=== PATIENT | male | born 1945 | race Caucasian/White ===

== ENCOUNTER 2017-04-10 23:20 | Inpatient (IN) ==
[2017-04-10] MEDS ORDERED: Aspirin 81 MG TAB.CHEW PO ONE (23:36)
--- NOTE | 2017-04-10 23:40 | Emergency Department Note ---
Disposition Clinical Impression: NSTEMI (non-ST elevated myocardial infarction) CHF (congestive heart failure) Qualifiers: Congestive heart failure type: unspecified congestive heart failure type Congestive heart failure chronicity: unspecified congestive heart failure chronicity Qualified Code(s): I50.9 - Heart failure, unspecified Disposition: Admitted As Inpatient Condition: Fair Time of Disposition: 01:05 Chest Pain HPI - General Stated Complaint: chest pain nausea Time Seen by Provider: 04/10/17 23:29 Vital Signs Reviewed: Yes Nursing Notes Reviewed: Yes - Related Data Allergies Allergy/AdvReac Type Severity Reaction Status Date / Time No Known Allergies Allergy Unverified 03/20/16 09:26 Chest Pain - [facility] Narrative Medical decision making narrative: 71-year-old male past medical history of CABG resistant emergency department with concern for worsening chest pain over the last week. Today he has largest episode of chest pain. The patient got to the emergency department, electrocardiogram revealed new ST segment depressions of 1 mm in the septal leads. This is also evident in leads 1 as well. Patient was not having any chest pain here in emergency prior. We gave him aspirin. Patient had elevated troponin here of 0.85. Patient is hypertensive with a systolic blood pressure in the 200s.. We will start nitroglycerin drip. Chest x-ray reveals pulmonary edema. We will give the patient 20 mg IV Lasix here in the emergency department. I have consulted cardiology, Dr. Head regarding further recommendations for this patient. She agreed with starting nitroglycerin drip as well as heparin via low-dose ACS protocol. Patient is currently not having any chest pain at this time. I discussed the patient with the plan with the family at bedside and they agree for him to be admitted for further workup and evaluation and monitoring. I also discussed this with the hospitalist and she agreed as well. Patient was hemodynamically stable and not in acute distress at discharge. Chest X-Ray 04/10/17 23:30 IMPRESSION: Pulmonary edema. D/ / Derki Chauhan MD / Derik Chauhan MD Interpreting Provider: Derik Chauhan MD - Lab Data Result diagrams: 04/10/17 00:00 04/10/17 00:00 Lab Results 04/10/17 04/10/17 04/10/17 Range/Units 00:00 00:00 00:00 WBC 10.8 (4.3-11.1) K/mcL RBC 5.06 (4.19-5.50) M/mcL Hgb 14.3 (12.9-16.9) g/dL Hct 44.7 (37.5-50.1) % MCV 88.3 (83.0-100.0) fL MCH 28.3 (28.0-33.3) pg MCHC 32.0 (31.6-35.5) g/dL RDW 14.6 H (11.5-14.5) % Plt Count 275 (140-400) K/mcL MPV 11.7 (9.4-12.4) fL Immature Gran % 0.7 (0-4) % Seg Neutrophils % 55.1 % Lymphocytes % 34.6 % Monocytes % 6.8 % Eosinophils % 2.2 % Basophils % 0.6 % Neutrophils # 6.0 (1.6-8.9) K/mcL Lymphocytes # 3.7 (0.6-4.6) K/mcL Monocytes # 0.7 (0.0-1.3) K/mcL Eosinophils # 0.2 (0.0-0.6) K/mcL Basophils # 0.1 (0.0-0.2) K/mcL Sodium 142 (136-145) mEq/L Potassium 3.9 (3.5-4.5) mEq/L Chloride 101 (98-109) mEq/L Carbon Dioxide 28 (19-29) mEq/L BUN 20 (8-26) mg/dL Creatinine 1.41 H (0.72-1.25) mg/dL Est GFR ( Amer) > 60 (> 60) Est GFR (Non-Af Amer) 50 L (> 60) BUN/Creatinine Ratio 14 (6-26) Glucose 184 H (70-99) mg/dL Calculated Osmolality 301 H (280-300) Calcium 10.1 (8.6-10.8) mg/dL Troponin I (0-0.03) ng/mL B-Natriuretic Peptide 597 H (0-100) pg/mL 04/10/17 Range/Units 00:00 WBC (4.3-11.1) K/mcL RBC (4.19-5.50) M/mcL Hgb (12.9-16.9) g/dL Hct (37.5-50.1) % MCV (83.0-100.0) fL MCH (28.0-33.3) pg MCHC (31.6-35.5) g/dL RDW (11.5-14.5) % Plt Count (140-400) K/mcL MPV (9.4-12.4) fL Immature Gran % (0-4) % Seg Neutrophils % % Lymphocytes % % Monocytes % % Eosinophils % % Basophils % % Neutrophils # (1.6-8.9) K/mcL Lymphocytes # (0.6-4.6) K/mcL Monocytes # (0.0-1.3) K/mcL Eosinophils # (0.0-0.6) K/mcL Basophils # (0.0-0.2) K/mcL Sodium (136-145) mEq/L Potassium (3.5-4.5) mEq/L Chloride (98-109) mEq/L Carbon Dioxide (19-29) mEq/L BUN (8-26) mg/dL Creatinine (0.72-1.25) mg/dL Est GFR ( Amer) (> 60) Est GFR (Non-Af Amer) (> 60) BUN/Creatinine Ratio (6-26) Glucose (70-99) mg/dL Calculated Osmolality (280-300) Calcium (8.6-10.8) mg/dL Troponin I 0.85 H* (0-0.03) ng/mL B-Natriuretic Peptide (0-100) pg/mL - Radiology Data Radiology results reviewed: Yes I reviewed the patient's radiology results. - EKG Data EKG attestation: Yes I reviewed and interpreted this EKG. EKG results narrative: EKG 1 23:26 Ventricular rate 86 bpm, when necessary interval 160 ms, QRS congregational 109 ms , QT 408 ms, QTC 451, normal axis. Sinus rhythm with a ventricular rate of 86 bpm. There are [address] segment depression in the septal leads of V3, V4. There is also [address] depression in leads 1. This is a comparison with a previous electrocardiogram performed on June 22, 2013. Attestation Statement - Attestation Attestation: I examined this patient and my medical decision-making was reviewed with the Resident Physician. I agree with the documented findings, disposition and treatment plan as described except to the extent set forth below. Patient presents to the ED with chest pain. Patient without some intermittent episodes for several days. He describes it as indigestion. He states he has been taking some medication for this with no relief of it. Patient does have cardiac history of a four-way bypass. On examination he is in no acute distress. He is having no symptoms on my evaluation. His lungs are clear. Plan. The patient has an elevated BNP, positive troponin, and pulmonary edema and his chest x-ray. He is given some Lasix. He is given aspirin and heparin for the elevated troponin. He is admitted to medicine with a cardiology consult. The patient does have new increased ST depressions anterolaterally. We did do a posterior EKG that did not show any ST elevations. 40 minutes of critical care exclusive of separately billable procedures.
[2017-04-11 00:08] LABS: Hematocrit 44.7 % (37.5-50.1); Hemoglobin 14.3 g/dL (12.9-16.9); Immature Granulocytes % 0.7 % (0-4); Lymphocytes % 34.6 %; Mean Corpuscular Hemoglobin 28.3 pg (28.0-33.3); Mean Corpuscular Volume 88.3 fL (83.0-100.0); Mean Platelet Volume 11.7 fL (9.4-12.4); Platelet Count 275 K/mcL (140-400); Red Blood Count 5.06 M/mcL (4.19-5.50); Red Cell Distribution Width 14.6 % (11.5-14.5); Segmented Neutrophils % 55.1 %
[2017-04-11 00:09] LABS: Basophils # 0.1 K/mcL (0.0-0.2); Basophils % 0.6 %; Eosinophils # 0.2 K/mcL (0.0-0.6); Eosinophils % 2.2 %; Lymphocytes # 3.7 K/mcL (0.6-4.6); Monocytes # 0.7 K/mcL (0.0-1.3); Monocytes % 6.8 %
[2017-04-11 00:21] LABS: BUN/Creatinine Ratio 14 (6-26); Blood Urea Nitrogen 20 mg/dL (8-26); Calcium 10.1 mg/dL (8.6-10.8); Carbon Dioxide 28 mEq/L (19-29); Chloride 101 mEq/L (98-109); Glucose 184 mg/dL (70-99); Osmolality,Calculated 301 (280-300); Potassium 3.9 mEq/L (3.5-4.5); Sodium 142 mEq/L (136-145); eGFR For African Americans > 60 (> 60); eGFR For Non-African Americans 50 (> 60)
[2017-04-11] MEDS ORDERED: *HR* Heparin 5,000 UNIT/ML VIAL IVP ONE (00:47)
[2017-04-11] MEDS ORDERED: *HR* Heparin 5,000 UNIT/ML VIAL IVP PRN ×2 (00:47)
[2017-04-11] MEDS ORDERED: Heparin 25,000 UNIT/500 ML D5W 25,000 UNIT/500 ML MLS IVC SCH (01:00)
[2017-04-11] MEDS ORDERED: Nitroglycerin 25 MG/250 ML INFUS..BTL IVC SCH (01:00)
[2017-04-11 01:04] LABS: Prothrombin Time 11.2 Seconds (9.4-12.1)
[2017-04-11] MEDS ORDERED: 0.9 % Sodium Chloride 500 ML ONE (01:06)
[2017-04-11] MEDS ORDERED: Furosemide 20 MG/2 ML VIAL IVP ONE (01:14)
[2017-04-11] MEDS ORDERED: Furosemide 40 MG/4 ML VIAL IVP ONE (01:17)
[2017-04-11] MEDS ORDERED: Naloxone 0.4 MG/ML INJ IVP PRN (01:55)
[2017-04-11] MEDS ORDERED: Ondansetron 4 MG/2 ML VIAL IVP PRN (01:55)
[2017-04-11] MEDS ORDERED: Acetaminophen 325 MG TABLET PO PRN (01:55)
[2017-04-11] MEDS ORDERED: Dextrose Gel 15 GM PO PRN ×2 (01:58)
[2017-04-11] MEDS ORDERED: *HR* Dextrose 50 % in Water (Syg) 50 ML SYRINGE IVP PRN (01:58)
[2017-04-11] MEDS ORDERED: D5% in Water 1,000 ML IVC PRN (01:58)
[2017-04-11] MEDS ORDERED: Ipratropium/Albuterol Neb 3 ML IH PRN (02:04)
--- NOTE | 2017-04-11 02:11 | Internal Med History&Physical ---
Date of Encounter: 04/11/17 Time of Encounter: 01:00 Assessment and Plan (1) COPD (chronic obstructive pulmonary disease) Current visit: Yes Status: Acute Patient has a history of COPD. Stable. No signs of exacerbation. Will continue home medications and DuoNeb nebulizer when necessary. Qualifiers: COPD type: emphysema Emphysema type: other Qualified Code(s): J43.8 - Other emphysema (2) Diabetes Current visit: Yes Status: Acute Please to patient on basal and sliding scale insulin coverage Qualifiers: Diabetes mellitus type: type 2 Diabetes mellitus complication status: with kidney complications Diabetes mellitus complication detail: with chronic kidney disease Diabetes mellitus silvering applicator insulin use: with silvering applicator use Chronic kidney disease stage: stage 3 (moderate) Qualified Code(s): E11.22 - Type 2 diabetes mellitus with diabetic chronic kidney disease; N18.3 - Chronic kidney disease, stage 3 (moderate); N18.3 - Chronic kidney disease, stage 3 ( moderate); 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 Patient has high blood pressure at this point, NTG drip was started in the emergency room. Will continue NTG drip and closely monitor BP. Qualifiers: Hypertension type: essential hypertension Qualified Code(s): I10 - Essential (primary) hypertension (4) MICA (obstructive sleep apnea) Current visit: Yes Status: Acute Continue CPAP during night (5) CAD (coronary artery disease) Current visit: Yes Status: Acute Patient has history of CAD S/P CABG and stent. Now patient has chest pain with elevated troponin. Consider NSTEMI. - Heparin drip was started. - Continue home med beta grace, ACEI, and statin. - Continuous cardiac monitoring. Cardiology consult. Qualifiers: Coronary Disease-Associated Artery/Lesion type: bypass graft [place] vs. transplanted heart: [place] heart Associated angina: with unstable angina Qualified Code(s): I25.700 - Atherosclerosis of coronary artery bypass graft(s) , unspecified, with unstable angina pectoris (6) DVT prophylaxis Current visit: Yes Status: Acute Patient is on heparin drip (7) NSTEMI (non-ST elevated myocardial infarction) Current visit: Yes Status: Acute Patient has chest pain with elevated troponin, consider NSTEMI - Heparin drip was started. - Continue home med beta grace, ACEI, and statin. - Continuous cardiac monitoring. Cardiology consult. (8) CHF (congestive heart failure) Current visit: Yes Status: Acute Patient has exertional shortness of breath. Elevated BNP and chest x-ray shows pulmonary edema. - Consider CHF with mild exacerbation. - NTG drip started. - Lasix IV - Strict I and O - Echocardiogram in a.m. Qualifiers: Congestive heart failure type: unspecified congestive heart failure type Congestive heart failure chronicity: unspecified congestive heart failure chronicity Qualified Code(s): I50.9 - Heart failure, unspecified Internal Medicine - H&P: HPI Chief complaint: Chest pain Admitted From: Home Plans for Post Hospital Care: Home History of present illness: Mr. Vann is a 71 year old male with history of COPD, CAD S/P CABG and stent , diabetes, hypertension, presented to emergency room for chest pain and shortness of breath. Patient said he has chest pain on and off for several weeks, he sought it is from reflex and didn't seek treatment as it gone by it self. Today, patient started having chest pain since 9 PM, radiated to bilateral arm, with shortness of breath, with nausea but no vomiting, patient also has diaphoresis. The pain lasted more than 1 hour and not resolve but itself. Patient come to ER, EKG shows no ST elevation, troponin positive. Patient was admitted as NSTEMI. Patient also complains exertional shortness of breath for about 2 weeks. X-ray shows pulmonary edema. Patient was also treated with Lasix IV. After treatment, his chest pain resolved, when I saw him in emergency room, he is pain-free. Internal Medicine - H&P: Meds Atorvastatin [Lipitor] 40 mg PO HS 04/11/17 [History] Budesonide/Formoterol 160/4.5 [Symbicort 160/4.5] 2 puff IH BIDR 04/11/17 [ History] Fluticasone Propionate Nasal [Flonase] 50 mcg NS DAILY 04/11/17 [History] Furosemide [Lasix] 20 mg PO DAILY 04/11/17 [History] Insulin Glargine,Hum.rec.anlog [Lantus Solostar] 22 - 24 unit SQ HS 04/11/17 [ History] Lisinopril [Zestril] 20 mg PO DAILY 04/11/17 [History] Metoprolol [Lopressor] 50 mg PO BID 04/11/17 [History] Montelukast [Singulair] 10 mg PO DAILY 04/11/17 [History] Ranolazine [Ranexa] 1,000 mg PO BID 04/11/17 [History] Sitagliptin Phos/Metformin HCl [Janumet Xr 50-1,000 mg Tablet] 1 each PO BID [History] 3 Allergy/AdvReac Type Severity Reaction Status Date / Time No Known Allergies Allergy Unverified 03/20/16 09:26 All Systems PM: A 10-system review of systems was performed and is negative for pertinent findings except as documented above in the HPI. - Constitutional Vitals: Pulse Resp BP Pulse Ox 73 18 197/107 94 04/11/17 02:03 04/11/17 02:03 04/11/17 02:03 04/11/17 02:03 General appearance: Present: mild distress, A&O X 3, answers questions appropriately - Head Head exam: Present: atraumatic, normocephalic - Eye Eye exam: Present: PERRL, conjuntiva pink, sclera anicteric Pupils: Present: PERRL - Neck Neck exam general surgery: Present: supple, trachea midline. Absent: lymphadenopathy - Respiratory Respiratory exam: Present: CTAB, wheezes (trace wheeze on left lower base). Absent: accessory muscle use, rales, rhonchi - Cardiovascular Cardiovascular exam: Present: RRR, +S1, +S2. Absent: diastolic murmur, gallop, rubs, systolic murmur - GI/Abdominal GI/Abdominal exam: Present: distended, normal bowel sounds, soft, no peritoneal signs. Absent: tenderness - Extremities Exam Extremities exam: Present: pedal edema (Mild pedal edema bilaterally), warm, radial pulses palpable and symmetrical. Absent: calf tenderness, cyanotic - Neurological Exam Neurological exam: Present: CN II-XII intact, oriented X3, no focal deficits. Absent: pronater drift, facial droop, speech deficit - Skin Skin exam: Present: dry, intact Internal Med - H&P Results - Labs CBC & Chem 7: 11/18/17 00:00 04/10/17 00:00 - EKG Data -: EKG Interpreted by Myself EKG shows normal: sinus rhythm Rate: normal
[2017-04-11] MEDS ORDERED: *HR* Metoprolol 5 MG/5 ML VIAL IVP ONE (02:19)
[2017-04-11] MEDS: Insulin LISPRO 300 UNITS/3 ML VIAL SQ SCH ×4 (06:28→22:17)
[2017-04-11 07:11] LABS: BUN/Creatinine Ratio 17 (6-26); Blood Urea Nitrogen 20 mg/dL (8-26); Calcium 9.2 mg/dL (8.6-10.8); Carbon Dioxide 28 mEq/L (19-29); Chloride 104 mEq/L (98-109); Glucose 150 mg/dL (70-99); Magnesium 1.5 mg/dL (1.6-2.6); Osmolality,Calculated 301 (280-300); Potassium 3.9 mEq/L (3.5-4.5); Sodium 143 mEq/L (136-145); eGFR For African Americans > 60 (> 60); eGFR For Non-African Americans > 60 (> 60)
[2017-04-11 07:31] LABS: Basophils % 0.7 %; Eosinophils % 1.8 %; Hematocrit 41.4 % (37.5-50.1); Hemoglobin 13.1 g/dL (12.9-16.9); Immature Granulocytes % 0.8 % (0-4); Lymphocytes % 29.5 %; Mean Corpuscular HGB Conc 31.6 g/dL (31.6-35.5); Mean Corpuscular Hemoglobin 28.1 pg (28.0-33.3); Mean Corpuscular Volume 88.8 fL (83.0-100.0); Mean Platelet Volume 11.8 fL (9.4-12.4); Monocytes % 7.1 %; Platelet Count 218 K/mcL (140-400); Red Blood Count 4.66 M/mcL (4.19-5.50); Red Cell Distribution Width 14.7 % (11.5-14.5); Segmented Neutrophils % 60.1 %
[2017-04-11 07:32] LABS: Basophils # 0.1 K/mcL (0.0-0.2); Eosinophils # 0.2 K/mcL (0.0-0.6); Lymphocytes # 2.7 K/mcL (0.6-4.6); Monocytes # 0.6 K/mcL (0.0-1.3); Neutrophils # 5.5 K/mcL (1.6-8.9)
[2017-04-11] MEDS ORDERED: Magnesium Sulfate 1 GM in D5% in Water 100 ML IVPB ONE (08:09)
[2017-04-11] MEDS: Aspirin Enteric Coated 81 MG Tablet PO SCH (08:26)
[2017-04-11] MEDS: Fluticasone Propionate Nasal 50 MCG/SPRAY BOTTLE NS SCH (08:26)
[2017-04-11] MEDS: Ranolazine 500 MG TAB.ER.12H PO SCH ×2 (08:31→22:16)
[2017-04-11] MEDS: Lisinopril 20 MG TABLET PO SCH (08:31)
[2017-04-11] MEDS: Furosemide 40 MG/4 ML VIAL IVP SCH ×2 (08:59→16:18)
[2017-04-11] MEDS ORDERED: Verapamil 5 MG/2 ML VIAL ONE (09:39)
[2017-04-11] MEDS ORDERED: 0.9 % Sodium Chloride 1,000 ML ONE ×2 (09:40→10:07)
[2017-04-11] MEDS ORDERED: *HR* Heparin 10,000 UNIT/10 ML VIAL ONE (09:40)
[2017-04-11] MEDS ORDERED: Nitroglycerin 1,000 MCG/10 ML VIAL IV ONE (09:40)
[2017-04-11] MEDS ORDERED: Heparin 1,000 UNITS/500 mL NS 500 ML ONE (09:40)
--- NOTE | 2017-04-11 09:59 | Event Note ---
Date of Encounter: 04/11/17 Time of Encounter: 08:50 Patient is a 71y/o male with history of COPD, CAD S/P CABG and stent, diabetes, hypertension who is admitted for NSTEMI and hypertensive emergency. Pt seen and examined at bedside. Denies any chest pain but remains hypertensive. Evaluated by cardiology and scheduled for [facility] today continue home medications currently on nitro gtt and heparin gtt
[2017-04-11] MEDS ORDERED: *HR* FentaNYL (PF) 100 MCG/2 ML VIAL ONE (10:07)
[2017-04-11] MEDS ORDERED: *HR* Midazolam HCl 2 MG/2 ML VIAL ONE (10:07)
--- NOTE | 2017-04-11 10:08 | Pre-Sedation Evaluation ---
Pre-sedation evaluation - Pre-sedation checklist Date of procedure: 04/11/17 Procedure: [facility] Recent Vitals: Last Vital Signs Temp 97.7 F 04/11/17 08:00 Pulse 76 04/11/17 08:00 Resp 20 04/11/17 08:00 BP 177/104 04/11/17 08:00 Pulse Ox 95 04/11/17 08:00 H&P (including ROS) documented in medical record: Yes Previous reaction to sedatives/anesthetics: Unknown Dietary Status: NPO after Midnight Airway Assessment: Patient can open mouth completely, TMJ function normal ASA Classification *see protocol: CLASS II-Mild systemic disease Plan of Care: Pt appropriate candidate for procedure/moderate/conscious sedation , Risks/benefits of procedure/sedation discussed w/ patient/family
[2017-04-11] MEDS ORDERED: Tirofiban 12.5 MG/250ML 12.5 MG/250 ML BAG ONE (10:45)
[2017-04-11] MEDS: Budesonide/Formoterol 160/4.5 MDI IH SCH ×3 (10:49→22:08)
--- NOTE | 2017-04-11 10:50 | Cardiology Consult Note ---
Date of Encounter: 04/11/17 Time of Encounter: 10:46 Assessment and Plan (1) NSTEMI (non-ST elevated myocardial infarction) Current Visit: Yes Status: Acute Troponins 0.85, 1.67. Complaints of chest pain and dyspnea over recent weeks. On heparin gtt, nitro gtt, ASA, Statin, BB. Prior echo in 2013 EF preserved. Most recent C 2013 with PCI to distal RCA. Hx of CABG. Recommend [facility]. R/B/A discussed. Pt agrees to proceed. [facility] today. Echo to evaluate EF. Continue to follow. (2) CHF (congestive heart failure) Current Visit: Yes Status: Acute BNP 597, CXR with vascular congestion. Agree with IV diuresis. Strict I/O, Na and fluid restriction, daily weights. Previous EF on echo 05/2013 was 55%, but on C at that time EF was 35%. Echo to determine type of EF. Qualifiers: Congestive heart failure type: unspecified congestive heart failure type Congestive heart failure chronicity: unspecified congestive heart failure chronicity Qualified Code(s): I50.9 - Heart failure, unspecified (3) CAD (coronary artery disease) Current Visit: Yes Status: Acute Hx of CABG and PCI. ASA, Statin, BB, ACEi. Qualifiers: Coronary Disease-Associated Artery/Lesion type: bypass graft [place] vs. transplanted heart: [place] heart Associated angina: with unstable angina Qualified Code(s): I25.700 - Atherosclerosis of coronary artery bypass graft(s) , unspecified, with unstable angina pectoris Discussion w patient/family: The assessment and plan as outlined above was discussed with the patient and/or family members who expressed understanding and agreement. All questions were answered. Thank you for involving us in the care of your patient. Please call with any questions. I will discuss all the above with Dr. Mayer and make changes as necessary. History of Present Illness Consult date: 04/11/17 Requesting physician: Giovanni Painter Consult reason: NSTEMI Chief complaint: Dyspnea, chest pain History of present illness: Mr. Vann is a 71 year old male with history of COPD, CAD S/P CABG and PCI, diabetes, hypertension, presented to emergency room for chest pain and shortness of breath. Patient said he has chest pain and dyspnea intermittently for several weeks. He attributed it to reflex and didn't seek treatment. Yesterday, patient started having chest pain, radiated to bilateral arms, had shortness of breath with nausea but no vomiting, was diaphoretic. The pain lasted more than 1 hour and did not resolve. CXR shows pulmonary edema, BNP 597. Troponins 0.85, 1.67. Cardiology consulted for further recommendations. Prior CV Testing: [facility] 06/21/13: Severe 3 vessel CAD, s/p CABG 2/4 patent bypass grafts, EF 35%. Successful PTCA/SAVAGE to distal RCA. SVG-ramus patent, BABB-mLAD patent, SVG-RCA occluded, SVG-1st marginal occluded. Echo 06/22/13: EF 55%. Past Med Surg Social Fam HX - Past Medical History Medical history: CHF, COPD, coronary artery disease, diabetes, hypertension Psychiatric history: no psych history - Past Surgical History Surgical History: angioplasty/stent, coronary bypass (CABG) - Social History Smoking Status: Former smoker Alcohol use: none Drug use: none Medications and Allergies Atorvastatin [Lipitor] 40 mg PO HS 04/11/17 [History] Budesonide/Formoterol 160/4.5 [Symbicort 160/4.5] 2 puff IH BIDR 04/11/17 [ History] Fluticasone Propionate Nasal [Flonase] 50 mcg NS DAILY 04/11/17 [History] Furosemide [Lasix] 20 mg PO DAILY 04/11/17 [History] Insulin Glargine,Hum.rec.anlog [Lantus Solostar] 22 - 24 unit SQ HS 04/11/17 [ History] Lisinopril [Zestril] 20 mg PO DAILY 04/11/17 [History] Metoprolol [Lopressor] 50 mg PO BID 04/11/17 [History] Montelukast [Singulair] 10 mg PO DAILY 04/11/17 [History] Ranolazine [Ranexa] 1,000 mg PO BID 04/11/17 [History] Sitagliptin Phos/Metformin HCl [Janumet Xr 50-1,000 mg Tablet] 1 each PO BID [History] 3 Allergy/AdvReac Type Severity Reaction Status Date / Time No Known Allergies Allergy Unverified 03/20/16 09:26 All Systems Review: A 10-system review of systems was performed and is negative for pertinent findings except as documented above in the HPI. - Cardiovascular Cardiovascular: as per HPI, chest pain at rest, chest pain with exertion, diaphoresis, dyspnea at rest, dyspnea on exertion, radiating jaw, neck or arm pain - Respiratory Respiratory: dyspnea Physical Examination Vital Signs, Last 4 Hours Temp Pulse Resp BP Pulse Ox 04/11/17 08:00 97.7 F 76 20 177/104 95 Vital Signs Temp Pulse Resp BP Pulse Ox 04/11/17 08:00 97.7 F 76 20 177/104 95 04/11/17 03:23 97.4 F L 75 16 158/90 94 04/11/17 02:29 77 18 160/97 94 04/11/17 02:03 73 18 197/107 94 Intake and Output 04/10/17 04/11/17 04/11/17 23:59 07:59 15:59 Intake Total 60 / 60 138 / 138 Output Total 300 / 300 Balance -240 / -240 138 / 138 Intake: IV Fluids 60 / 60 138 / 138 Heparin 25,000 UNIT/500 ML D5W 138 / 138 25,000 unit In 500 ml @ 8.8 UNIT/KG/HR 20.118 mls/hr IVC . Q24H [facility] Rx#:[id number] Nitroglycerin Premix 25 MG/250 60 / 60 ML 25 mg In 250 ml @ 5 MCG/MIN 3 mls/hr IVC .Q24H [facility] Rx#: [id number] Oral 0 / 0 0 / 0 Output: Urine 300 / 300 Other: Stool Size Moderate Stool Consistency soft Stool Color Brown # Voids 1 1 # Bowel Movements 1 Weight 114.1 kg Blood Glucose* 132 131 Patient Weight 04/11/17 23:59 Weight 114.1 kg General: Conversant, No Apparent Distress HEENT: Atraumatic, Normocephaly, Mucus Membranes Moist Neck: No JVD, Normal carotid pulses Cardiac: Reg Rate and Rhythm, Normal S1 and S2, No Murmur Lungs: Other (diminished) Neuro: Alert and responsive, No focal deficits noted Abdomen: Soft, Non-Tender Skin: No rashes noted on visualized skin Musculoskeletal: No Chest Wall Tenderness Extremities: No Clubbing, No Cyanosis, No Edema, Normal Pulses Results 04/11/17 06:20 04/11/17 06:20 Lab Results 11/04/11/17 04/11/17 06:20 06:20 06:20 WBC 9.1 Hgb 13.1 Hct 41.4 Plt Count 218 INR APTT Sodium 143 Potassium 3.9 Chloride 104 Carbon Dioxide 28 BUN 20 Creatinine 1.17 Glucose 150 H Calcium 9.2 Magnesium 1.5 L Troponin I 1.67 H* 04/11/17 04/11/17 07:44 Unknown WBC Hgb Hct Plt Count INR 1.0 APTT 89.2 H D 40.0 H Sodium Potassium Chloride Carbon Dioxide BUN Creatinine Glucose Calcium Magnesium Troponin I Short CBC 04/11/17 04/10/17 Range/Units 06:20 00:00 WBC 9.1 10.8 (4.3-11.1) K/mcL Hgb 13.1 14.3 (12.9-16.9) g/dL Hct 41.4 44.7 (37.5-50.1) % Plt Count 218 275 (140-400) K/mcL Neutrophils # 5.5 6.0 (1.6-8.9) K/mcL BMP 04/11/17 04/10/17 Range/Units 06:20 00:00 Sodium 143 142 (136-145) mEq/L Potassium 3.9 3.9 (3.5-4.5) mEq/L Chloride 104 101 (98-109) mEq/L Carbon Dioxide 28 28 (19-29) mEq/L BUN 20 20 (8-26) mg/dL Creatinine 1.17 1.41 H (0.72-1.25) mg/dL Glucose 150 H 184 H (70-99) mg/dL Calcium 9.2 10.1 (8.6-10.8) mg/dL Cardiac Enzymes 04/11/17 04/10/17 Range/Units 06:20 00:00 Troponin I 1.67 H* 0.85 H* (0-0.03) ng/mL Impressions Chest X-Ray 04/10/17 23:30 IMPRESSION: Pulmonary edema. D/ / Derik Chauhan MD / Derik Chauhan MD Interpreting Provider: Derik Chauhan MD Active Medications Acetaminophen (Tylenol) 650 mg PO Q6HR PRN PRN Reason: Mild Pain (1-3) Stop: 10/11/17 01:56 Last Admin: 04/11/17 08:31 Dose: 650 mg Albuterol/Ipratropium (Duoneb) 3 ml IH [id number] PRN PRN Reason: Shortness Of Breath/Wheezing Stop: 10/11/17 02:05 Aspirin (Aspirin Ec) 81 mg PO DAILY [facility] Stop: 10/11/17 09:01 Last Admin: 04/11/17 08:26 Dose: Not Given Atorvastatin Calcium (Lipitor) 40 mg PO HS [facility] Stop: 10/11/17 21:01 Budesonide/Formoterol Fumarate (Symbicort) 2 puff IH BIDR [facility] PRN Reason: Protocol Stop: 10/11/17 10:01 Last Admin: 04/11/17 10:49 Dose: Not Given Dextrose/Water (Dextrose 50% (Syg)) 25 ml IVP AD PRN PRN Reason: Hypoglycemia Stop: 10/11/17 01:59 Fluticasone Propionate (Flonase) 50 mcg NS DAILY [facility] PRN Reason: Protocol Stop: 10/11/17 09:01 Last Admin: 04/11/17 08:26 Dose: Not Given Furosemide (Lasix) 40 mg IVP BIDDIURETIC [facility] Stop: 10/11/17 08:01 Last Admin: 04/11/17 08:59 Dose: 40 mg Glucagon (Glucagen) 1 mg IM ONCE PRN PRN Reason: Hypoglycemia Stop: 10/11/17 01:59 Glucose (Gluctose) 15 gm PO ONCE PRN PRN Reason: Hypoglycemia Stop: 10/11/17 01:59 Glucose (Gluctose) 30 gm PO ONCE PRN PRN Reason: Hypoglycemia Stop: 10/11/17 01:59 Heparin Sodium (Porcine) (Heparin) 4,000 unit IVP Q6HR PRN PRN Reason: SEE COMMENTS Stop: 10/11/17 00:48 Heparin Sodium (Porcine) (Heparin) 2,000 unit IVP Q6H PRN PRN Reason: SEE COMMENTS Stop: 10/11/17 00:48 Heparin Sodium/Dextrose (Heparin 25,000 Unit/500 Ml D5w) 25,000 unit in 500 mls @ 20.118 mls/hr IVC .Q24H [facility]; 8.8 UNIT/KG/HR PRN Reason: Protocol Stop: 10/11/17 01:01 Last Titration: 04/11/17 08:43 Dose: 8.8 unit/kg/hr, 20.118 mls/hr Nitroglycerin (Nitroglycerin Premix 25 Mg/250 Ml) 25 mg in 250 mls @ 3 mls/hr IVC .Q24H [facility]Y; 5 MCG/MIN PRN Reason: Protocol Stop: 10/11/17 01:01 Last Titration: 04/11/17 02:04 Dose: 20 mcg/min, 12 mls/hr Dextrose (Dextrose 5%) 1,000 mls @ 100 mls/hr IVC .Q10H PRN PRN Reason: HYPOGLYCEMIA Stop: 10/11/17 01:59 Insulin Detemir (Levemir) 20 unit SQ HS [facility] Stop: 10/11/17 21:01 Insulin Human Lispro (Humalog) 0 units SQ Q6HR [facility] PRN Reason: Protocol Stop: 10/11/17 06:01 Last Admin: 04/11/17 06:28 Dose: Not Given Lisinopril (Zestril) 20 mg PO DAILY [facility] PRN Reason: Protocol Stop: 10/11/17 09:01 Last Admin: 04/11/17 08:31 Dose: 20 mg Metoprolol Tartrate (Lopressor) 50 mg PO BID [facility] Stop: 10/11/17 09:01 Last Admin: 04/11/17 08:31 Dose: 50 mg Montelukast Sodium (Singulair) 10 mg PO DAILY [facility] Stop: 10/11/17 09:01 Last Admin: 04/11/17 08:31 Dose: 10 mg Naloxone HCl (Narcan) 0.4 mg IVP Q2MIN PRN PRN Reason: Opioid Reversal Stop: 10/11/17 01:56 Ondansetron HCl (Zofran) 4 mg IVP Q8HR PRN PRN Reason: Nausea And Vomiting Stop: 10/11/17 01:56 Ranolazine (Ranexa) 1,000 mg PO BID [facility] Stop: 10/11/17 09:01 Last Admin: 04/11/17 08:31 Dose: 1,000 mg - Imaging and Cardiology Echo: report reviewed Cardiac cath: report reviewed - EKG Interpretation EKG results cardiology: personally reviewed (SR with PACs), other (12 hr tele AVG HR 73) Consult Discharge Plan - Plan
[2017-04-11] MEDS ORDERED: *HR* HYDROcodone/Acet 5/325 mg TABLET PO PRN (11:48)
--- NOTE | 2017-04-11 11:51 | Invasive Diagnostic Lab Proc ---
Name: Jesus Vann Date of Study: 04/11/2017 Date: 1945 Ht: 70.9in Medical Record#: [id number] Age: 71 Wt: 251.33lb Gender: Male BSA: 2.32 Order #: [id number] BMI: 35.19 Physicians Procedure Physician: Alfred Ham MD, [facility] Referring MD: Referring MD: Staff Name Position Time In Kay Molina RT (R) Scrub 10:07 AM Alexandra Roblero RN Dental Office Receptionist 10:07 AM Fermin Fonseca RN Monitor 10:07 AM Indications Indication Non-Stemi Procedures Performed Procedure L HRT ART/GRFT ANGIO PRQ CARD SAVAGE STENT W/ANGIO 1 VSL Pre-Procedure Checklist Informed consent is complete signed and on chart. H&P is on chart. ID band is on and ID verified with patient. Patient NPO for procedure The procedure was described for the patient and questions were answered. Blood Pressure: 177/104 ECG is on chart. Rhythm: NSR Plan of Care Patient will tolerate the procedure without complications. Adequate level of comfort will be maintained. Hemodynamics will remain stable Patient will recover from procedure without complications. Respiratory function will be maintained. Cardiac rhythm will remain stable. Patient temperature will be maintained. Patient and/or family have verbalized understanding of the procedure. Patient Education Chief Complaint/Reason for Test: Cardiac Cath Developmental Category: Adult (18-64 years) Developmentally Appropriate for Age: Yes Learning Barriers: None Education Needs: Procedure Education Method: Verbal Information Taught: Cardiac Cath Educational Evaluation: Able to repeat information Intravenous Access Time IV Size Location DC'd Fluid/Drip Rate Units RN 20g 1 1/4" Patent On Arrival Lt Arm 20g 1 1/4" Patent On Arrival Rt Wrist Allergies NKA No Known Allergies Vital Signs Time BP (mmHg) HR (bpm) O2 Sat. RR (bpm) LOC 09:52 AM 177 / 104 76 95 % 20 5 = Fully awake and oriented or at pre-proc level 10:19 AM / % 5 = Fully awake and oriented or at pre-proc level 10:19 AM / % 4 = Oriented but drowsy 10:34 AM / % 4 = Oriented but drowsy 10:49 AM / % 4 = Oriented but drowsy 11:04 AM / % 4 = Oriented but drowsy 10:50 AM 170 / 92 69 97 % 16 10:55 AM 177 / 101 72 98 % 18 11:00 AM 178 / 108 73 97 % 19 11:05 AM 170 / 105 70 97 % 17 11:10 AM 142 / 84 62 96 % 18 11:15 AM 131 / 86 56 97 % 19 11:20 AM 136 / 84 60 % 22 10:11 AM 210 / 142 78 95 % 17 10:15 AM 201 / 102 72 94 % 19 10:21 AM 195 / 116 69 96 % 17 10:25 AM 195 / 105 71 93 % 33 10:29 AM 173 / 100 69 93 % 23 10:30 AM 170 / 94 71 95 % 20 10:35 AM 173 / 109 68 97 % 17 10:40 AM 169 / 101 77 96 % 17 10:45 AM 169 / 97 69 97 % 18 Procedural Medications Time Medication Dose Units Method Given By 10:08 AM Oxygen 2 L/min nasal cannula Alexandra Roblero RN 10:08 AM Nitroglycerin 20 mcg/min Intravenous 10:18 AM Versed 2 mg Intravenous Alexandra Roblero RN 10:18 AM Fentanyl 50 mcg Intravenous OsbaldoAlexandra cao RN 10:29 AM Lidocaine 2% 20 ml Subcutaneous Alfred Ham MD, FACC 10:31 AM Oxygen 4 L/min nasal cannula Alexandra Roblero RN 10:31 AM Hydralazine 10 mg Intravenous OsbaldoAlexandra cao RN 10:47 AM Heparin 3000 units Intravenous OsbaldoAlexandra cao RN 10:48 AM Aggrastat Bolus: 58 ml Intravenous Alexandra Roblero RN 10:48 AM Aggrastat 12.5mg/250ml 21 ml/hr Intravenous Alexandra Roblero RN 11:25 AM Plavix 600 mg Orally Alexandra Roblero RN ASA Classification: CLASS II- Mild systemic disease (i.e. well-controlled diabetes, hypertension, asthma, cigarette smoking) Irina Score Preprocedure Postprocedure Activity 2- Moves 4 extremities sustained head lift Activity 2- Moves 4 extremities sustained head lift Circulation 2- SBP +/= 20 points of pre-anesthetic level Circulation 2- SBP +/= 20 points of pre-anesthetic level Consciousness 2- Awake and alert oriented x 3 Consciousness 2- Awake and alert oriented x 3 O2 Saturation 2- Able to maintain O2 satruation of 92% on room air O2 Saturation 2- Able to maintain O2 satruation of 92% on room air Respiratory 2- Able to deep breathe and cough well Respiratory 2- Able to deep breathe and cough well Total Score 10 Total Score 10 Contrast Agent: Isovue Diagnostic Contrast: 119 ml Total Contrast: 119 ml Fluoro Dose: 1065 mGy Activated Clotting Time Time Seconds to Clot 10:44 AM 142 11:16 AM 242 Procedure Log Time Note Enter By 09:57 AM CathStat 10:07 AM Pt arrived to cork slabs sawyer 2 at 10:07 scoates 10:07 AM heparin gtt stopped in room scoates 10:07 AM Kay Molina RT (R) Position: Scrub Time in: 10:07 scoates 10:07 AM Alexandra Roblero RN Position: Dental Office Receptionist Time in: 10:07 scoates 10:07 AM Patient charges- Angio tray pack, Navilyst 3mm J, Pulse Oximetry and ACIST tubing and transducer scoates 10:08 AM Fermin Fonseca RN Position: Monitor Time in: 10:07 scoates 10:08 AM Physician arrived 10:08 scoates 10:08 AM Meet and brian completed scoates 10:08 AM Sign in performed according to hospital policy. scoates 10:08 AM Procedure start 10:08 scoates 10:08 AM Time: 10:08 Oxygen on at 2 L/min per nasal cannula by Alexandra Roblero RN scoates 10:09 AM Vitals capture started with the following parameters, Patient=Adult, Interval=5 min, Initial Jzeurgqx=086 mmHg, Deflation Rate=5 mmHg, Cuff placed on Right Arm 10:09 AM Patient arrived at 10:08 with Nitroglycerin Intravenous drip @ 20 mcg/min scoates 10:11 AM HR=78 bpm, XLAR=394/142 mmhg, SpO2=95.0 %, Resp=17 B/min, Comment=nsr 10:15 AM HR=72 bpm, ASVS=158/102 mmhg, SpO2=94.0 %, Resp=19 B/min, Comment=nsr 10:18 AM Time: 10:18 Versed 2 mg Intravenous Given by Alexandra Roblero RN scoates 10:18 AM Time: 10:18 Fentanyl 50 mcg Intravenous Given by Alexandra Roblero RN scoates : AM Time: 10:19 Patient comfortable and pain free: Yes scoates 10: AM Time: 10:LOC: 5 = Fully awake and oriented or at pre-proc level scoates 10:19 AM hearing aids present bilaterally scoates 10:20 AM Clinical Presentation: Non-STEMI scoates 10:21 AM HR=69 bpm, UGLI=957/116 mmhg, SpO2=96.0 %, Resp=17 B/min, Comment=nsr 10:25 AM HR=71 bpm, SZBF=606/105 mmhg, SpO2=93.0 %, Resp=33 B/min, Comment=nsr 10: AM Time out performed according to hospital policy scoates 10: AM Pressure channel 1 zeroed. 10: AM NIBP STAT measurement started. 10: AM Time: : 20 ml Lidocaine 2% to right groin Subcutaneous Given by Alfred Ham MD, [facility] scoates 10: AM Access obtained by percutaneous puncture. 5Fr 10cm Terumo [employer] sheath placed in right Femoral artery. [id number] scoates 10:29 AM HR=69 bpm, BATI=205/100 mmhg, SpO2=93.0 %, Resp=23 B/min, Comment=nsr 10:30 AM 5Fr FL 4 catheter inserted over the wire DNC scoates 10:30 AM HR=71 bpm, DGTY=117/94 mmhg, SpO2=95.0 %, Resp=20 B/min, Comment=nsr 10:31 AM Recorded Pressure: Ao, HR=73, Condition=Condition 1 (Aorta) Ao 162/91/123 10:31 AM Time: 10:31 Oxygen on at 4 L/min per nasal cannula by Alexandra Roblero RN scoates 10:31 AM Time: 10:31 Hydralazine 10 mg Intravenous Given by Alexandra Roblero RN scoates 10:31 AM LCA angiography performed in multiple views. scoates 10:33 AM Catheter removed scoates 10:33 AM 5Fr FR 4 catheter inserted over the wire DNC scoates 10:34 AM Time: 10:19LOC: 4 = Oriented but drowsy scoates 10:34 AM Time: 10:19 Patient comfortable and pain free: Yes scoates 10:35 AM HR=68 bpm, FMMV=942/109 mmhg, SpO2=97.0 %, Resp=17 B/min, Comment=nsr 10:36 AM Recorded Pressure: Ao, HR=70, Condition=Condition 1 (Aorta) Ao 188/84/124 10:37 AM RCA angiography performed in multiple views. scoates 10:38 AM SVG to the Ramus angio performed in multiple views. scoates 10:38 AM Catheter repositioned scoates 10:38 AM Catheter removed scoates 10:39 AM Wire removed scoates 10:39 AM 0.035 260cm Navilyst 3mmJ wire [id number] scoates 10:39 AM 5Fr IM catheter inserted over the wire [id number] scoates 10:40 AM HR=77 bpm, HQAR=914/101 mmhg, SpO2=96.0 %, Resp=17 B/min, Comment=nsr 10:40 AM Left ROBBY to the LAD angio performed in multiple views. scoates 10:41 AM Catheter removed scoates 10:43 AM Lesion found in Mid RCA. Pre Stenosis: 95 Pre LUNA Flow: 3: Complete and Brisk Flow/Perfusion scoates 10:44 AM At 10:44 the ACT was 142 seconds. scoates 10:45 AM Right Coronary, Right Posterior Descending Arteries with Right Posterolateral and Acute Marginal branches with 95 % stenosis. If graft is supplying this area, 0 % stenosis scoates 10:45 AM HR=69 bpm, YIHV=477/97 mmhg, SpO2=97.0 %, Resp=18 B/min, Comment=nsr 10:45 AM Recorded Pressure: Ao, HR=72, Condition=Condition 1 (Aorta) Ao 177/92/126 10:45 AM PCI Status Urgent scoates 10:45 AM PCI Indication: PCI for high risk Non-STEMI or unstable angina scoates 10:46 AM Sheath exchanged for a 6 Fr 11 cm Terumo [employer] sheath [id number] scoates 10:46 AM 6Fr HS Runway guide catheter was used to cannulate the PCI vessel successfully. reused? No scoates 10:46 AM .014 [place] 190cm guide wire across target lesion- successful. reused? No scoates 10:47 AM Inflation device was opened. scoates 10:47 AM Time: 10:47 Heparin 3000 units Intravenous Given by Alexandra Roblero RN scoates 10:47 AM 3.0 mm x 12 mm Emerge Monorail balloon across target lesion- successful. reused? No scoates 10:48 AM Balloon inflated @ 14 audrey for 18 seconds scoates 10:48 AM Time: 10:48 Aggrastat Bolus: 58 ml Intravenous Given by Alexandra Roblero RN Almanza pump scoates 10:49 AM Time: 10:48 Aggrastat 12.5mg/250ml 21 ml/hr Intravenous Given by Alexandra Roblero RN Almanza pump scoates 10:49 AM Time: 10:34 Patient comfortable and pain free: Yes scoates 10:49 AM Time: 10:34LOC: 4 = Oriented but drowsy scoates 10:49 AM Recorded Pressure: Ao, HR=73, Condition=Condition 1 (Aorta) Ao 176/88/124 10:50 AM HR=69 bpm, RMMK=735/92 mmhg, SpO2=97.0 %, Resp=16 B/min, Comment=nsr 10:50 AM Balloon catheter removed intact. scoates 10:50 AM 4.0mm x 16mm Synergy drug-eluting stent across target lesion- successful Lot #[id number] scoates 10:52 AM Stent delivery system removed intact, undeployed. scoates 10:53 AM Coronary Dominance: right scoates 10:54 AM Recorded Pressure: Ao, HR=71, Condition=Condition 1 (Aorta) Ao 125/59/86 10:54 AM 3.5 mm x 12mm NC Emerge balloon across target lesion- successful. reused? No scoates 10:55 AM .014 [place] 180cm guide wire across target lesion- successful. reused? No (Second Wire) scoates 10:55 AM HR=72 bpm, YINW=525/101 mmhg, SpO2=98.0 %, Resp=18 B/min, Comment=nsr 10:57 AM Balloon catheter removed intact. scoates 10:57 AM Balloon going on [place]ater wire now. scoates 10:58 AM Balloon inflated @ 14 audrey for 11 seconds scoates 10:59 AM Balloon catheter removed intact. scoates 10:59 AM Stent delivery system re-inserted. scoates 11:00 AM HR=73 bpm, CKHJ=015/108 mmhg, SpO2=97.0 %, Resp=19 B/min, Comment=nsr 11:01 AM Stent deployed @ 15 audrey for 30 seconds scoates 11:01 AM Recorded Pressure: Ao, HR=74, Condition=Condition 1 (Aorta) Ao 166/100/131 11:02 AM Stent delivery system removed intact. scoates 11:02 AM 4.5 mm x 12mm NC Emerge balloon across target lesion- successful. reused? No scoates 11:04 AM Balloon inflated @ 16 audrey for 25 seconds scoates 11:04 AM Time: 10:49LOC: 4 = Oriented but drowsy scoates 11:04 AM Time: 10:49 Patient comfortable and pain free: Yes scoates 11:05 AM Balloon inflated @ 15 audrey for 12 seconds scoates 11:05 AM HR=70 bpm, IFMI=890/105 mmhg, SpO2=97.0 %, Resp=17 B/min, Comment=nsr 11:05 AM Balloon inflated @ 12 audrey for 18 seconds scoates 11:06 AM Balloon inflated @ 18 audrey for 17 seconds scoates 11:06 AM Recorded Pressure: Ao, HR=72, Condition=Condition 1 (Aorta) Ao 168/93/124 11:06 AM Balloon inflated @ 12 audrey for 8 seconds scoates 11:06 AM Balloon catheter removed intact. scoates 11:08 AM Guide catheter removed intact. scoates 11:08 AM 5Fr Pigtail catheter inserted over the wire DNC scoates 11:09 AM Recorded Pressure: LV, HR=70, Condition=Condition 1 (Left Ventricle) LV 146/3/8 11:10 AM Recorded Pressure: LV, HR=68, Condition=Condition 1 (Left Ventricle) LV 149/2/9 11:10 AM Catheter selectively placed in left ventricle scoates 11:10 AM HR=62 bpm, WBNI=187/84 mmhg, SpO2=96.0 %, Resp=18 B/min, Comment=nsr 11:10 AM Recorded Pressure: LV, Ao, HR=64, Condition=Condition 1 (Left Ventricle) LV 139/6/10, (Aorta) Ao 133/73/96 11:11 AM Bolus angiogram of left Ventricle complete: 10 ml/sec for a total of 25 mls scoates 11:11 AM Catheter removed scoates 11:11 AM Wire removed scoates 11:11 AM Bolus angiogram of right Femoral complete: 4 ml/sec for a total of 7 mls scoates 11:14 AM Procedure completed at 11:14 scoates 11:14 AM Sign out completed: Radiation Dose 1065 mGy Fluoro Time: 12.8 Isovue 370 - 200ml contrast 119 ml given by Alfred Ham MD, FACC. Complications: NoneCardiac Rehab Consult needed: YesConfirmed administered medications: Yes scoates 11:14 AM Isovue 370 - 200ml,1 Bottle(s) used. scoates 11:14 AM Sheath left in place to be pulled on floor/holding areaV+Pad scoates 11:15 AM Estimated Blood Loss: less than 20cc scoates 11:15 AM Post ECG Sinus Bradycardia scoates 11:15 AM HR=56 bpm, KYMF=977/86 mmhg, SpO2=97.0 %, Resp=19 B/min, Comment=sb 11:15 AM Post Blood Pressure 131/86 scoates 11:16 AM Information taught Cardiac Cath and PCI scoates 11:16 AM Education needs Procedure, Plan of Care, and Responsibilities of Patient in Care scoates 11:16 AM At 11:16 the ACT was 242 seconds. scoates 11:17 AM Learning barriers :None scoates 11:17 AM Education Methods Verbal scoates 11:17 AM Education evaluation Able to repeat information scoates 11:17 AM Site status No bleeding/hematoma - Rt Groin as reported by Kay Molina RT (R) at 11:17 scoates 11:17 AM Opsite applied scoates 11:18 AM Report given to 2N RN Pt taken to 2N Room #2. 11:18 scoates 11:18 AM Plavix, Effient or Brilinta given Yes scoates 11:19 AM Delay to floor No scoates 11:20 AM HR=60 bpm, RSND=843/84 mmhg, Resp=22 B/min, Comment=nsr 11:21 AM Time: 11:04 Patient comfortable and pain free: Yes scoates 11:22 AM Time: 11:04LOC: 4 = Oriented but drowsy scoates 11:22 AM Family placed in consult room. scoates 11:22 AM Complications: None scoates 11:22 AM Fluoro Time: 12.8 scoates 11:22 AM Isovue 370 - 200ml contrast 119 ml given by Alfred Ham MD, FACC. scoates 11:22 AM Radiation Dose 1065 mGy scoates 11:25 AM Time: 11:25 Plavix 600 mg Orally Given by Alexandra Roblero RN scoates 11:29 AM 11:29 Post Pulses Bilateral DP & PT 1+ scoates 11:29 AM Patient out of room: 11:29 scoates 11:31 AM Lesion found in Proximal LAD. Pre Stenosis: 100 Pre LUNA Flow: scoates 11:31 AM Lesion found in 1st Diagonal. Pre Stenosis: 99 Pre LUNA Flow: scoates 11:32 AM Lesion found in Proximal Circumflex. Pre Stenosis: 100 Pre LUNA Flow: scoates 11:32 AM Lesion found in Ramus. Pre Stenosis: 40 Pre LUNA Flow: scoates 11:33 AM Lesion found in Proximal RCA. Pre Stenosis: 30 Pre LUNA Flow: scoates 11:33 AM Proximal Left Anterior Descending Coronary Artery with 100% stenosis. If graft is supplying this territory, 0 % stenosis. scoates 11:34 AM Mid/Distal Left Anterior Descending Coronary Artery and diagonal branches with 99% stenosis. If graft is supplying this area, 0 % stenosis scoates 11:34 AM Circumflex, Obtuse Marginal, Left Posterior Descending, and Left Posterolateral Coronary Arteries with 100 % stenosis. If graft is supplying this area, 0 % stenosis scoates 11:35 AM Ramus with 40% stenosis. If graft is supplying this area, 0 % stenosis scoates Complications Complication None None Hemodynamics Pressures Site Systolic/A Wave Diastolic/V Wave Mean AO 162 91 123 AO 188 84 124 AO 177 92 126 AO 176 88 124 AO 125 59 86 AO 166 100 131 AO 168 93 124 LV 146 3 8 LV 149 2 9 LV 139 6 10 AO 133 73 96 Post Procedure Information Blood Pressure: 131/86 mmHg Rhythm: Sinus Bradycardia Post procedural instructions were given Site Checks Time Location Status Staff Sheath In? Note 11:17 AM Rt Groin No bleeding/hematoma Kay Molina RT (R) Yes To be pulled on 2N Pulses Time Site Pre-Procedure Post-Procedure Note Bilateral DP & PT 1+ 11:29:00 AM Bilateral DP & PT 1+ Updated by Alexandra Austin RN on 04/11/2017 11:43:48 AM electronically signed on 04/11/2017 11:44:37 AM with status of Final
[2017-04-11] MEDS ORDERED: Tirofiban 12.5 MG/250ML 12.5 MG/250 ML BAG IVC SCH (12:00)
[2017-04-11] MEDS ORDERED: *HR* Atropine Sulfate 1 MG/10 ML SYRINGE ONE (12:53)
--- NOTE | 2017-04-11 17:41 | Electrocardiograph Report ---
[address] [address] Test Date: 2017-04-10 Pat Name: Jesus Vann Department: 103 Room: 2N02 Gender: M Quiller Machine Fixer: KANIKA : 1945 Requested By: Yolie Redding Order Number: [id number] Reading MD: Gina Mayer Measurements Intervals [place] Rate: 86 P: 1 NM: 160 QRS: 73 QRSD: 109 T: 167 QT: 408 QTc: 451 Interpretive Statements SINUS RHYTHM WITH OCCASIONAL SUPRAVENTRICULAR PREMATURE COMPLEXES IV CONDUCTIOND DEFECT EXTENSIVE ST-T ABNORMALITIES MAY BE DUE TO ISCHEMIA Electronically Signed On 04-11-2017 17:40:33 EST by Gina Mayer
--- NOTE | 2017-04-11 17:43 | Electrocardiograph Report ---
[address] [address] Test Date: 2017-04-10 Pat Name: Jesus Vann Department: 104 Room: 2N02 Gender: M Ekg Manager: BRENNAN : 1945 Requested By: Abi See Order Number: [id number] Reading MD: Gina Mayer Measurements Intervals [place] Rate: 86 P: -59 MT: 116 QRS: 77 QRSD: 109 T: 179 QT: 418 QTc: 461 Interpretive Statements SINUS RHYTHM WITH FREQUENT SUPRAVENTRICULAR PREMATURE COMPLEXES IV CONDUCTION DEFECT EXTENSIVE ST-T WAVE ABNORMALITIES MAY BE DUE TO ISCHEMIA Electronically Signed On 04-11-2017 17:42:20 EST by Gina Mayer
[2017-04-11] MEDS ORDERED: Insulin DETEMIR 100 UNIT/ML X5UNITS SQ SCH (21:00)
[2017-04-12] MEDS ORDERED: ALPRAZolam 0.25 MG TABLET PO ONE (01:06)
[2017-04-12 03:12] LABS: Basophils % 0.4 %; Eosinophils # 0.1 K/mcL (0.0-0.6); Eosinophils % 1.4 %; Hematocrit 41.1 % (37.5-50.1); Hemoglobin 13.2 g/dL (12.9-16.9); Immature Granulocytes % 0.6 % (0-4); Lymphocytes # 2.1 K/mcL (0.6-4.6); Lymphocytes % 21.4 %; Mean Corpuscular HGB Conc 32.1 g/dL (31.6-35.5); Mean Corpuscular Hemoglobin 28.3 pg (28.0-33.3); Mean Platelet Volume 11.9 fL (9.4-12.4); Monocytes # 0.7 K/mcL (0.0-1.3); Monocytes % 7.5 %; Neutrophils # 6.6 K/mcL (1.6-8.9); Platelet Count 256 K/mcL (140-400); Red Blood Count 4.67 M/mcL (4.19-5.50); Red Cell Distribution Width 14.8 % (11.5-14.5); Segmented Neutrophils % 68.7 %
[2017-04-12 03:14] LABS: Calcium 9.1 mg/dL (8.6-10.8); Magnesium 1.6 mg/dL (1.6-2.6); Phosphorous 3.9 mg/dL (2.3-4.7); Potassium 3.7 mEq/L (3.5-4.5)
[2017-04-12] MEDS: Fluticasone Propionate Nasal 50 MCG/SPRAY BOTTLE NS SCH (08:43)
[2017-04-12] MEDS: Ranolazine 500 MG TAB.ER.12H PO SCH (08:45)
[2017-04-12] MEDS: Furosemide 40 MG/4 ML VIAL IVP SCH (08:46)
[2017-04-12] MEDS: Lisinopril 20 MG TABLET PO SCH (08:46)
[2017-04-12] MEDS: Aspirin Enteric Coated 81 MG Tablet PO SCH (08:46)
[2017-04-12] MEDS: Insulin LISPRO 300 UNITS/3 ML VIAL SQ SCH ×2 (08:49→12:39)
--- NOTE | 2017-04-12 09:14 | Internal Med Progress Note ---
<Donnell Karimi - Last Filed: 04/12/17 12:29> Date of Encounter: 04/12/17 Time of Encounter: 08:15 - Assessment and plan (1) NSTEMI (non-ST elevated myocardial infarction) Status: Acute Assessment and plan: Patient initially presented with chest pain. EKG performed in the ER demonstrated new ST depressions of 1mm in the septal leads; evident in lead 1 as well. Troponins 0.85, 1.67. Cardiology on board. Cath performed 04/11/17; Demonstrated severe 3 vessel disease. 16mm long, 80-90% stenosis in mid RCA. PTCA/drug eluting stent placed in mid RCA, final stenosis of 0% Plan: -ASA 81mg PO daily -Atorvastatin 40 mg PO daily. -Plavix 75 mg PO daily. -Lisinopril 20 mg PO daily. -Lopressor 50 mg PO BID. -Cardiac diet -CONS to cardiac rehab, phase 1 (2) CHF (congestive heart failure) Status: Acute Assessment and plan: BNP on admission 597. CXR Performed in ER demonstrated pulmonary edema. Last ECHO was in 2013: EF 55%; on [facility] at that time, EF was 35%. Patient was given IV Lasix 40 mg BID on 04/11/17; discontinued lasix today. Plan: -Strict I/O, daily weight, fluid restriction -Per cardiology, repeat ECHO Qualifiers: Congestive heart failure type: unspecified congestive heart failure type Congestive heart failure chronicity: unspecified congestive heart failure chronicity Qualified Code(s): I50.9 - Heart failure, unspecified (3) CAD (coronary artery disease) Status: Acute Assessment and plan: Patient has a history of CABG and PCI Per cardiology: ASA, statin, BB Qualifiers: Coronary Disease-Associated Artery/Lesion type: bypass graft [place] vs. transplanted heart: [place] heart Associated angina: with unstable angina Qualified Code(s): I25.700 - Atherosclerosis of coronary artery bypass graft(s) , unspecified, with unstable angina pectoris (4) COPD (chronic obstructive pulmonary disease) Status: Acute Assessment and plan: Patient has known history of COPD. Currently on 2L O2 via NC. Patient reports that he sees a lodge sales associate yearly; Follow up in the outpatient setting. Qualifiers: COPD type: emphysema Emphysema type: other Qualified Code(s): J43.8 - Other emphysema (5) Diabetes Status: Acute Assessment and plan: Basal and sliding scale insulin Qualifiers: Diabetes mellitus type: type 2 Diabetes mellitus complication status: with kidney complications Diabetes mellitus complication detail: with chronic kidney disease Diabetes mellitus detention insulin use: with detention use Chronic kidney disease stage: stage 3 (moderate) Qualified Code(s): E11.22 - Type 2 diabetes mellitus with diabetic chronic kidney disease; N18.3 - Chronic kidney disease, stage 3 (moderate); N18.3 - Chronic kidney disease, stage 3 ( moderate); Z79.4 - intermediate project manager (current) use of insulin; Z79.4 - intermediate project manager ( current) use of insulin; Z79.4 - assisted (current) use of insulin; Z79.4 - intermediate project manager (current) use of insulin (6) Hypertension Status: Acute Qualifiers: Hypertension type: essential hypertension Qualified Code(s): I10 - Essential (primary) hypertension - Subjective Interval history: Patient was seen and examined at bedside this morning. Patient is status post heart catheterization. Patient states that he tolerated the procedure well. He does report some shortness of breath; states that he has mild difficulty breathing at baseline secondary to COPD; reports a slight increase in difficulty breathing. Patient currently on 2L O2 via nasal cannula. Patient also reports mild reflux. He currently denies having any chest pain, nausea, vomiting, diaphoresis. He currently has no additional complaints at this time. - Constitutional Vitals: Temp Pulse Resp BP Pulse Ox 97.6 F 72 20 148/86 96 04/12/17 07:01 04/12/17 07:01 04/12/17 04:41 04/12/17 07:01 04/12/17 07:01 General appearance: Present: A&O X 3, answers questions appropriately - Head Head exam: Present: atraumatic, normal inspection, normocephalic - ENT ENT exam: Present: mucous membranes moist - Neck Neck exam general surgery: Present: full ROM, normal inspection. Absent: lymphadenopathy, tenderness - Respiratory Respiratory exam: Present: CTAB. Absent: rhonchi, stridor, wheezes - Cardiovascular Cardiovascular exam: Present: RRR, +S1, +S2. Absent: irregular rhythm, JVD, systolic murmur, tachycardia - Psychiatric Psychiatric exam: Present: normal affect, normal mood - Skin Skin exam: Present: dry, intact Internal Medicine: Result - Labs CBC & Chem 7: 04/12/17 02:16 04/12/17 02:16 Labs: Short CBC 04/12/17 Range/Units 02:16 WBC 9.7 (4.3-11.1) K/mcL Hgb 13.2 (12.9-16.9) g/dL Hct 41.1 (37.5-50.1) % Plt Count 256 (140-400) K/mcL Neutrophils # 6.6 (1.6-8.9) K/mcL BMP 04/12/17 02:16 Sodium 138 Potassium 3.7 Chloride 100 Carbon Dioxide 28 BUN 21 Creatinine 1.52 H Glucose 238 H Calcium 9.1 - ABG Interpretation ABG results: PT/INR, D-dimer PT 11.2 Seconds (9.4-12.1) 04/11/17 Unknown Consult Discharge Plan - Plan Instructions: Myocardial Infarction (DC), Heart Failure (DC), Diabetes Mellitus Type 2 in Adults (DC), Chronic Obstructive Pulmonary Disease (DC) Additional Instructions: RISK FACTORS: STOP SMOKING: If you smoke, STOP. Smoking or tobacco use significantly increases your risk of heart disease because nicotine causes the arteries to narrow or constrict. It also causes fats to stick to the artery. Your chances of having a heart attack are greatly increased if you continue to smoke. For more information, call the education line for smoking cessation 4-301-CJAVSIO EAT A LOW FAT/CHOLESTEROL/SODIUM DIET: This diet may help reduce your chances of having a heart attack. LIFTING: Avoid lifting anything more than 10 pounds for 5-7 days Prior to straining, laughing, sneezing and/or coughing, apply manual pressure directly over insertion site. ACTIVITY: You may walk or climb stairs as tolerated You can resume sexual activity as tolerated In general, you are encouraged to engage in a minimum of 30 minutes or more of moderate intensity physical activity, such as brisk walking, daily or at least 3 -4 times weekly BATHING Do not submerge the site into water (bath tub, hot tub, swimming pool) for 1 week. This can be a source for infection into the blood stream. You may shower after 24 hours SITE CARE: After 24 hours, you may remove the dressing and leave the site open to air. Keep the site clean and dry. Clean gently and pat dry. You can expect bruising and tenderness that gradually resolve within a week or two. Return to work as instructed per your physician Resume driving as instructed per physician Keep all scheduled follow up appointments Resume medications as instructed IMPORTANT: If prescribed a Platelet Aggregation Inhibitor such as, Plavix, Brilinta or Effient: Duration of therapy is minimum one year These medications are often used in combination with Aspirin in prevention of future heart attacks Never discontinue unless consult with your Supervisor [employer] STROKE (CVA) Risk factors for a stroke are: Age, cigarette smoking, diabetes, excessive alcohol consumption, family history, high blood pressure, overweight, physical inactivity, prior stroke, heart attack, diagnosis of carotid artery stenosis or other artery disease. Warning signs: Sudden numbness or weakness of the face, arm or leg; especially on one side of the body, sudden confusion, trouble speaking or understanding, sudden trouble seeing in one or both eyes, sudden trouble walking, dizziness, loss of balance or coordination, sudden severe headache with no cause. Call 911 or go to the Emergency Room. CONGESTIVE HEART FAILURE: If you have been diagnosed with Congestive Heart Failure (CHF) and your symptoms return, make an appointment with your physician Weigh yourself daily. Notify your physician if you have a weight gain of two or more pounds in one day or five or more pounds in one week. If you experience any difficulty breathing, please call 911 BLEEDING: Although the risk of bleeding is minimal, it can happen. If you have any bleeding from the site, apply firm pressure above the puncture site for 10-15 minutes. If the bleeding does not stop, continue manual pressure and call 911 Contact your physician if: You develop a fever greater than 101 degrees Fahrenheit Your site becomes reddened or has any drainage You have an increase in pain or burning at the site or if a large knot forms at the site. If you experience chest pain, shortness of breath, dizziness, or extreme tiredness, stop the activity and rest. Please notify your physicians office if you experience any of these symptoms and they are not relieved by rest please call 911! Referrals: Pepe Harrington MD [Primary Care Provider] - 04/19/17 10:00 am Osei Cao MD [Partnered Physician] - 04/27/17 1:30 pm Prescriptions: Clopidogrel [Plavix] 75 mg PO DAILY #30 tablet <Romario Colon Sarah - Last Filed: 04/12/17 16:16> Date of Encounter: 04/12/17 - Assessment and plan (1) NSTEMI (non-ST elevated myocardial infarction) Status: Acute (2) CAD (coronary artery disease) Status: Chronic Qualifiers: Coronary Disease-Associated Artery/Lesion type: bypass graft [place] vs. transplanted heart: [place] heart Associated angina: with unstable angina Qualified Code(s): I25.700 - Atherosclerosis of coronary artery bypass graft(s) , unspecified, with unstable angina pectoris (3) Hypertension Status: Chronic Qualifiers: Hypertension type: essential hypertension Qualified Code(s): I10 - Essential (primary) hypertension (4) CHF (congestive heart failure) Status: Chronic Qualifiers: Congestive heart failure type: diastolic Congestive heart failure chronicity: chronic Qualified Code(s): I50.32 - Chronic diastolic (congestive ) heart failure (5) Diabetes Status: Chronic Qualifiers: Diabetes mellitus type: type 2 Diabetes mellitus complication status: with kidney complications Diabetes mellitus complication detail: with chronic kidney disease Diabetes mellitus intermodal truck driver insulin use: with intermodal truck driver use Chronic kidney disease stage: stage 3 (moderate) Qualified Code(s): E11.22 - Type 2 diabetes mellitus with diabetic chronic kidney disease; N18.3 - Chronic kidney disease, stage 3 (moderate); N18.3 - Chronic kidney disease, stage 3 ( moderate); Z79.4 - assisted (current) use of insulin; Z79.4 - intermediate project manager ( current) use of insulin; Z79.4 - assisted (current) use of insulin; Z79.4 - intermediate project manager (current) use of insulin (6) COPD (chronic obstructive pulmonary disease) Status: Chronic Qualifiers: COPD type: emphysema Emphysema type: other Qualified Code(s): J43.8 - Other emphysema (7) MICA (obstructive sleep apnea) Status: Chronic - Constitutional Vitals: Temp Pulse Resp BP Pulse Ox 97.5 F L 74 18 135/84 96 04/12/17 11:24 04/12/17 12:45 04/12/17 12:45 04/12/17 11:24 04/12/17 11:24 Internal Medicine: Result - Labs CBC & Chem 7: 04/12/17 02:16 04/12/17 02:16 Labs: Short CBC 04/12/17 Range/Units 02:16 WBC 9.7 (4.3-11.1) K/mcL Hgb 13.2 (12.9-16.9) g/dL Hct 41.1 (37.5-50.1) % Plt Count 256 (140-400) K/mcL Neutrophils # 6.6 (1.6-8.9) K/mcL BMP 04/12/17 02:16 Sodium 138 Potassium 3.7 Chloride 100 Carbon Dioxide 28 BUN 21 Creatinine 1.52 H Glucose 238 H Calcium 9.1 - ABG Interpretation ABG results: PT/INR, D-dimer PT 11.2 Seconds (9.4-12.1) 04/11/17 Unknown - Attending Attestation Please see discharge summary of this date.
--- NOTE | 2017-04-12 09:56 | Cardiology Progress Note ---
Date of Encounter: 04/12/17 Time of Encounter: 09:51 Assessment and Plan (1) NSTEMI (non-ST elevated myocardial infarction) Current Visit: Yes Status: Acute Troponins 0.85, 1.67. Complaints of chest pain and dyspnea over recent weeks. s/p LHC yesterday--revealed severe 3 vessel CAD. Successful PTCA/SAVAGE to mid RCA , culprit for MO. S/P CABG 2 of 4 patent bypass grafts. (DAPT) ASA and Plavix uninterrupted x 1 year. Pt verbalizes understanding. Continue BB, Statin, ACEi, nitrates. Right femoral access site healing well. No bleeding or hematoma. Small amount of ecchymosis noted. Creatinine worsened from 1.17 to 1.52. IV Lasix stopped. Pt does have CKD stage 3 at baseline, current creatinine only mildly elevated from his usual baseline. Pt denies recurrent chest pain. Echo pending. Cardiology signing off. Reconsult PRN. Follow-up as outpt in 1 week. Will coordinate. (2) CHF (congestive heart failure) Current Visit: Yes Status: Acute BNP 597, CXR with vascular congestion. Was on IV diuresis 40mg BID. Renal function worsened, stopped IV Lasix. Strict I/O, Na and fluid restriction, daily weights. Previous EF on echo 05/2013 was 55%, but on [facility] at that time EF was 35%. Current echo pending. Qualifiers: Congestive heart failure type: unspecified congestive heart failure type Congestive heart failure chronicity: unspecified congestive heart failure chronicity Qualified Code(s): I50.9 - Heart failure, unspecified (3) CAD (coronary artery disease) Current Visit: Yes Status: Acute Hx of CABG and PCI. S/P SAVAGE to mRCA yesterday. ASA, Plavix, Statin, BB, ACEi. Qualifiers: Coronary Disease-Associated Artery/Lesion type: bypass graft [place] vs. transplanted heart: [place] heart Associated angina: with unstable angina Qualified Code(s): I25.700 - Atherosclerosis of coronary artery bypass graft(s) , unspecified, with unstable angina pectoris Discussion w patient/family: The assessment and plan as outlined above was discussed with the patient and/or family members who expressed understanding and agreement. All questions were answered. Thank you for involving us in the care of your patient. Please call with any questions. I will discuss all the above with Dr. Urbina and make changes as necessary. Subjective Principal diagnosis: NSTEMI Interval history: S/P LHC yesterday for NSTEMI--Severe 3 vessel CAD, successful PTCA/SAVAGE to mid RCA--culprit for MO. S/P CABG 2/4 patent bypass grafts. Pt denies any recurrent chest pain overnight. Dyspnea has improved. Echo pending. Objective Vital Signs, Last 4 Hours Temp Pulse BP Pulse Ox 04/12/17 07:01 97.6 F 72 148/86 96 Vital Signs Temp Pulse Pulse Resp BP Pulse Ox 04/12/17 07:01 97.6 F 72 148/86 96 04/12/17 04:41 98.1 F 70 20 170/93 95 04/11/17 23:35 97.8 F 68 18 157/93 96 04/11/17 23:22 16 139/101 97 04/11/17 22:08 16 97 04/11/17 20:23 98.2 F 79 20 139/101 95 04/11/17 17:00 63 161/97 97 04/11/17 16:00 66 152/93 04/11/17 15:00 62 18 150/84 95 04/11/17 14:45 137/86 04/11/17 14:30 66 20 149/87 95 04/11/17 14:15 66 20 142/95 94 04/11/17 13:55 68 18 153/97 95 04/11/17 13:50 65 20 143/96 96 04/11/17 13:45 66 65 20 160/97 96 04/11/17 13:40 64 65 145/96 04/11/17 13:35 64 65 151/93 04/11/17 13:30 66 65 153/97 04/11/17 13:28 20 95 04/11/17 13:25 65 65 155/97 04/11/17 13:20 69 65 155/96 04/11/17 13:18 65 04/11/17 13:13 67 159/95 04/11/17 12:47 70 153/84 96 04/11/17 12:30 70 22 159/92 95 04/11/17 12:15 176/120 04/11/17 12:00 191/100 04/11/17 11:45 170/93 04/11/17 11:35 97.7 F 69 20 167/89 95 Intake and Output 04/11/17 04/12/17 04/12/17 23:59 07:59 15:59 Intake Total 370 / 370 520 / 520 Output Total 1800 / 1800 Balance -1430 / -1430 520 / 520 Intake: IV Fluids 250 / 250 Oral 120 / 120 520 / 520 Output: Urine 1800 / 1800 Other: Meal Dinner Breakfast Percent of Meal Consumed 30% 100% # Voids 2 Weight 111.1 kg Blood Glucose* 177 190 Patient Weight 04/12/17 23:59 Weight 111.1 kg General: Conversant, No Apparent Distress HEENT: Atraumatic, Normocephaly, Mucus Membranes Moist Neck: No JVD, Normal carotid pulses Cardiac: Reg Rate and Rhythm, Normal S1 and S2, No Murmur Lungs: Other (diminished) Neuro: Alert and responsive, No focal deficits noted Abdomen: Soft, Non-Tender Skin: No rashes noted on visualized skin Musculoskeletal: No Chest Wall Tenderness Extremities: Other (right femoral access site healing well. No bleeding, hematoma or ecchymosis noted.) Results 04/12/17 02:16 04/12/17 02:16 Lab Results 04/12/17 04/12/17 02:16 02:16 WBC 9.7 Hgb 13.2 Hct 41.1 Plt Count 256 Sodium 138 Potassium 3.7 Chloride 100 Carbon Dioxide 28 BUN 21 Creatinine 1.52 H Glucose 238 H Calcium 9.1 Magnesium 1.6 Short CBC 04/12/17 Range/Units 02:16 WBC 9.7 (4.3-11.1) K/mcL Hgb 13.2 (12.9-16.9) g/dL Hct 41.1 (37.5-50.1) % Plt Count 256 (140-400) K/mcL Neutrophils # 6.6 (1.6-8.9) K/mcL BMP 04/12/17 Range/Units 02:16 Sodium 138 (136-145) mEq/L Potassium 3.7 (3.5-4.5) mEq/L Chloride 100 (98-109) mEq/L Carbon Dioxide 28 (19-29) mEq/L BUN 21 (8-26) mg/dL Creatinine 1.52 H (0.72-1.25) mg/dL Glucose 238 H (70-99) mg/dL Calcium 9.1 (8.6-10.8) mg/dL Active Medications Acetaminophen (Tylenol) 650 mg PO Q6HR PRN PRN Reason: Mild Pain (1-3) Stop: 10/11/17 01:56 Last Admin: 04/11/17 08:31 Dose: 650 mg Hydrocodone Bitart/Acetaminophen ([place] 5-325 Mg) 1 tab PO Q4HR PRN PRN Reason: Moderate Pain Stop: 10/11/17 11:49 Albuterol/Ipratropium (Duoneb) 3 ml IH [id number] PRN PRN Reason: Shortness Of Breath/Wheezing Stop: 10/11/17 02:05 Aspirin (Aspirin Ec) 81 mg PO DAILY [facility] Stop: 10/11/17 09:01 Last Admin: 04/12/17 08:46 Dose: 81 mg Atorvastatin Calcium (Lipitor) 40 mg PO HS [facility] Stop: 10/11/17 21:01 Last Admin: 04/11/17 22:16 Dose: 40 mg Budesonide/Formoterol Fumarate (Symbicort) 2 puff IH BIDR [facility] PRN Reason: Protocol Stop: 10/11/17 10:01 Last Admin: 04/11/17 22:08 Dose: 2 puff Clopidogrel Bisulfate (Plavix) 75 mg PO DAILY [facility] Stop: 10/12/17 09:01 Last Admin: 04/12/17 08:46 Dose: 75 mg Dextrose/Water (Dextrose 50% (Syg)) 25 ml IVP AD PRN PRN Reason: Hypoglycemia Stop: 10/11/17 01:59 Fluticasone Propionate (Flonase) 50 mcg NS DAILY [facility] PRN Reason: Protocol Stop: 10/11/17 09:01 Last Admin: 04/12/17 08:43 Dose: 50 mcg Glucagon (Glucagen) 1 mg IM ONCE PRN PRN Reason: Hypoglycemia Stop: 10/11/17 01:59 Glucose (Gluctose) 15 gm PO ONCE PRN PRN Reason: Hypoglycemia Stop: 10/11/17 01:59 Glucose (Gluctose) 30 gm PO ONCE PRN PRN Reason: Hypoglycemia Stop: 10/11/17 01:59 Dextrose (Dextrose 5%) 1,000 mls @ 100 mls/hr IVC .Q10H PRN PRN Reason: HYPOGLYCEMIA Stop: 10/11/17 01:59 Insulin Detemir (Levemir) 20 unit SQ HS [facility] Stop: 10/11/17 21:01 Last Admin: 04/11/17 22:15 Dose: 20 unit Insulin Human Lispro (Humalog) 0 units SQ ACHS [facility] PRN Reason: Protocol Stop: 10/11/17 17:01 Last Admin: 04/12/17 08:49 Dose: 4 units Lisinopril (Zestril) 20 mg PO DAILY [facility] PRN Reason: Protocol Stop: 10/11/17 09:01 Last Admin: 04/12/17 08:46 Dose: 20 mg Metoprolol Tartrate (Lopressor) 50 mg PO BID [facility] Stop: 10/11/17 09:01 Last Admin: 04/12/17 08:45 Dose: 50 mg Montelukast Sodium (Singulair) 10 mg PO DAILY [facility] Stop: 10/11/17 09:01 Last Admin: 04/12/17 08:46 Dose: 10 mg Naloxone HCl (Narcan) 0.4 mg IVP Q2MIN PRN PRN Reason: Opioid Reversal Stop: 10/11/17 01:56 Ondansetron HCl (Zofran) 4 mg IVP Q8HR PRN PRN Reason: Nausea And Vomiting Stop: 10/11/17 01:56 Last Admin: 04/11/17 14:13 Dose: 4 mg Ranolazine (Ranexa) 1,000 mg PO BID [facility] Stop: 10/11/17 09:01 Last Admin: 04/12/17 08:45 Dose: 1,000 mg - Imaging and Cardiology Echo: pending Cardiac cath: report reviewed - EKG Interpretation EKG results cardiology: other (12 hr tele AVG HR 70, no significant pauses or arrhythmias) Consult Discharge Plan - Plan Additional Instructions: RISK FACTORS: STOP SMOKING: If you smoke, STOP. Smoking or tobacco use significantly increases your risk of heart disease because nicotine causes the arteries to narrow or constrict. It also causes fats to stick to the artery. Your chances of having a heart attack are greatly increased if you continue to smoke. For more information, call the education line for smoking cessation 8-869-ICOHQJR EAT A LOW FAT/CHOLESTEROL/SODIUM DIET: This diet may help reduce your chances of having a heart attack. LIFTING: Avoid lifting anything more than 10 pounds for 5-7 days Prior to straining, laughing, sneezing and/or coughing, apply manual pressure directly over insertion site. ACTIVITY: You may walk or climb stairs as tolerated You can resume sexual activity as tolerated In general, you are encouraged to engage in a minimum of 30 minutes or more of moderate intensity physical activity, such as brisk walking, daily or at least 3 -4 times weekly BATHING Do not submerge the site into water (bath tub, hot tub, swimming pool) for 1 week. This can be a source for infection into the blood stream. You may shower after 24 hours SITE CARE: After 24 hours, you may remove the dressing and leave the site open to air. Keep the site clean and dry. Clean gently and pat dry. You can expect bruising and tenderness that gradually resolve within a week or two. Return to work as instructed per your physician Resume driving as instructed per physician Keep all scheduled follow up appointments Resume medications as instructed IMPORTANT: If prescribed a Platelet Aggregation Inhibitor such as, Plavix, Brilinta or Effient: Duration of therapy is minimum one year These medications are often used in combination with Aspirin in prevention of future heart attacks Never discontinue unless consult with your [employer] STROKE (CVA) Risk factors for a stroke are: Age, cigarette smoking, diabetes, excessive alcohol consumption, family history, high blood pressure, overweight, physical inactivity, prior stroke, heart attack, diagnosis of carotid artery stenosis or other artery disease. Warning signs: Sudden numbness or weakness of the face, arm or leg; especially on one side of the body, sudden confusion, trouble speaking or understanding, sudden trouble seeing in one or both eyes, sudden trouble walking, dizziness, loss of balance or coordination, sudden severe headache with no cause. Call 911 or go to the Emergency Room. CONGESTIVE HEART FAILURE: If you have been diagnosed with Congestive Heart Failure (CHF) and your symptoms return, make an appointment with your physician Weigh yourself daily. Notify your physician if you have a weight gain of two or more pounds in one day or five or more pounds in one week. If you experience any difficulty breathing, please call 911 BLEEDING: Although the risk of bleeding is minimal, it can happen. If you have any bleeding from the site, apply firm pressure above the puncture site for 10-15 minutes. If the bleeding does not stop, continue manual pressure and call 911 Contact your physician if: You develop a fever greater than 101 degrees Fahrenheit Your site becomes reddened or has any drainage You have an increase in pain or burning at the site or if a large knot forms at the site. If you experience chest pain, shortness of breath, dizziness, or extreme tiredness, stop the activity and rest. Please notify your physicians office if you experience any of these symptoms and they are not relieved by rest please call 911! Referrals: Pepe Harrington MD [Primary Care Provider] - 04/19/17 10:00 am Osei Cao MD [Partnered Physician] - 04/27/17 1:30 pm
[2017-04-12] MEDS: Budesonide/Formoterol 160/4.5 MDI IH SCH (10:35)
[2017-04-12 11:26] VITALS: BP 135/84
--- NOTE | 2017-04-12 12:31 | Discharge Summary ---
<TrevDonnell - Last Filed: 04/12/17 13:01> Date of Encounter: 04/12/17 Time of Encounter: 08:15 - Discharge Diagnosis (1) NSTEMI (non-ST elevated myocardial infarction) Priority: Primary Status: Acute Comments: Per cardiology, patient is to follow-up in the outpatient setting in 1 week. (2) CHF (congestive heart failure) Priority: Secondary Status: Acute Qualifiers: Congestive heart failure type: unspecified congestive heart failure type Congestive heart failure chronicity: unspecified congestive heart failure chronicity Qualified Code(s): I50.9 - Heart failure, unspecified (3) CAD (coronary artery disease) Priority: Secondary Status: Acute Qualifiers: Coronary Disease-Associated Artery/Lesion type: bypass graft [place] vs. transplanted heart: [place] heart Associated angina: with unstable angina Qualified Code(s): I25.700 - Atherosclerosis of coronary artery bypass graft(s) , unspecified, with unstable angina pectoris (4) COPD (chronic obstructive pulmonary disease) Priority: Secondary Status: Acute Qualifiers: COPD type: emphysema Emphysema type: other Qualified Code(s): J43.8 - Other emphysema (5) Diabetes Priority: Secondary Status: Acute Qualifiers: Diabetes mellitus type: type 2 Diabetes mellitus complication status: with kidney complications Diabetes mellitus complication detail: with chronic kidney disease Diabetes mellitus skilled nursing insulin use: with terminal gauger use Chronic kidney disease stage: stage 3 (moderate) Qualified Code(s): E11.22 - Type 2 diabetes mellitus with diabetic chronic kidney disease; N18.3 - Chronic kidney disease, stage 3 (moderate); N18.3 - Chronic kidney disease, stage 3 ( moderate); Z79.4 - FPC (current) use of insulin; Z79.4 - terminal gauger ( current) use of insulin; Z79.4 - terminal gauger (current) use of insulin; Z79.4 - terminal gauger (current) use of insulin (6) Hypertension Priority: Secondary Status: Acute Qualifiers: Hypertension type: essential hypertension Qualified Code(s): I10 - Essential (primary) hypertension - Discharge Medications Prescriptions: Clopidogrel [Plavix] 75 mg PO DAILY #30 tablet Home Medications: Atorvastatin [Lipitor] 40 mg PO HS 04/11/17 [History] Budesonide/Formoterol 160/4.5 [Symbicort 160/4.5] 2 puff IH BIDR 04/11/17 [ History] Fluticasone Propionate Nasal [Flonase] 50 mcg NS DAILY 04/11/17 [History] Furosemide [Lasix] 20 mg PO DAILY 04/11/17 [History] Insulin Glargine,Hum.rec.anlog [Lantus Solostar] 22 - 24 unit SQ HS 04/11/17 [ History] Lisinopril [Zestril] 20 mg PO DAILY 04/11/17 [History] Metoprolol [Lopressor] 50 mg PO BID 04/11/17 [History] Montelukast [Singulair] 10 mg PO DAILY 04/11/17 [History] Ranolazine [Ranexa] 1,000 mg PO BID 04/11/17 [History] Sitagliptin Phos/Metformin HCl [Janumet Xr 50-1,000 mg Tablet] 1 each PO BID [History] Clopidogrel [Plavix] 75 mg PO DAILY #30 tablet 04/12/17 [Rx] Omeprazole [PriLOSEC] 40 mg PO DAILY 04/12/17 [History] Allergies/Adverse Reactions: 3 Allergy/AdvReac Type Severity Reaction Status Date / Time No Known Allergies Allergy Verified 04/12/17 09:37 Procedures/tests Complete & Pending: Procedures Performed prior 72 hours Category Date Time Status CL Cardiac Catheterization [CL] Routine Assistant Professor Of Radiology 04/11/17 09:21 Completed ECG 12 lead ECG [ECG] Routine Y 04/10/17 23:26 Completed ECG 12 lead ECG [ECG] Routine Y 04/11/17 11:48 Ordered EV echocardiogram Routine Y 04/12/17 02:22 Completed Date of admission: 04/11/17 01:55 Primary care physician: Pepe Harrington MD Consults: 04/11/17 12:52 Consult to Cardiac Rehabilitation-Phase1 [CONS] Routine Comment: Reason for Consult: NSTEMI Call Completed: No Discharging clinician: Romario Colon Anticipated date of discharge: 04/12/17 - Patient Status Disposition: Home, Self-Care Condition: Good Functional capacity at discharge: independent ambulation Overall status at discharge: patient is progressing back to baseline - Ambulatory Orders Ambulatory Orders: Renal Function Panel [CHEM] Time Frame: 04/16/17, Facility: [facility], Location: [facility] [place] - Discharge Instructions Instructions: Myocardial Infarction (DC), Heart Failure (DC), Diabetes Mellitus Type 2 in Adults (DC), Chronic Obstructive Pulmonary Disease (DC) Follow Up With: Pepe Harrington MD [Primary Care Provider] - 04/19/17 10:00 am Osei Cao MD [Partnered Physician] - 04/27/17 1:30 pm Forms: ED Satisfaction Letter Additional Instructions: RISK FACTORS: STOP SMOKING: If you smoke, STOP. Smoking or tobacco use significantly increases your risk of heart disease because nicotine causes the arteries to narrow or constrict. It also causes fats to stick to the artery. Your chances of having a heart attack are greatly increased if you continue to smoke. For more information, call the education line for smoking cessation 5-708-WNLPMBI EAT A LOW FAT/CHOLESTEROL/SODIUM DIET: This diet may help reduce your chances of having a heart attack. LIFTING: Avoid lifting anything more than 10 pounds for 5-7 days Prior to straining, laughing, sneezing and/or coughing, apply manual pressure directly over insertion site. ACTIVITY: You may walk or climb stairs as tolerated You can resume sexual activity as tolerated In general, you are encouraged to engage in a minimum of 30 minutes or more of moderate intensity physical activity, such as brisk walking, daily or at least 3 -4 times weekly BATHING Do not submerge the site into water (bath tub, hot tub, swimming pool) for 1 week. This can be a source for infection into the blood stream. You may shower after 24 hours SITE CARE: After 24 hours, you may remove the dressing and leave the site open to air. Keep the site clean and dry. Clean gently and pat dry. You can expect bruising and tenderness that gradually resolve within a week or two. Return to work as instructed per your physician Resume driving as instructed per physician Keep all scheduled follow up appointments Resume medications as instructed IMPORTANT: If prescribed a Platelet Aggregation Inhibitor such as, Plavix, Brilinta or Effient: Duration of therapy is minimum one year These medications are often used in combination with Aspirin in prevention of future heart attacks Never discontinue unless consult with your Engineer Remote Control Diesel STROKE (CVA) Risk factors for a stroke are: Age, cigarette smoking, diabetes, excessive alcohol consumption, family history, high blood pressure, overweight, physical inactivity, prior stroke, heart attack, diagnosis of carotid artery stenosis or other artery disease. Warning signs: Sudden numbness or weakness of the face, arm or leg; especially on one side of the body, sudden confusion, trouble speaking or understanding, sudden trouble seeing in one or both eyes, sudden trouble walking, dizziness, loss of balance or coordination, sudden severe headache with no cause. Call 911 or go to the Emergency Room. CONGESTIVE HEART FAILURE: If you have been diagnosed with Congestive Heart Failure (CHF) and your symptoms return, make an appointment with your physician Weigh yourself daily. Notify your physician if you have a weight gain of two or more pounds in one day or five or more pounds in one week. If you experience any difficulty breathing, please call 911 BLEEDING: Although the risk of bleeding is minimal, it can happen. If you have any bleeding from the site, apply firm pressure above the puncture site for 10-15 minutes. If the bleeding does not stop, continue manual pressure and call 911 Contact your physician if: You develop a fever greater than 101 degrees Fahrenheit Your site becomes reddened or has any drainage You have an increase in pain or burning at the site or if a large knot forms at the site. If you experience chest pain, shortness of breath, dizziness, or extreme tiredness, stop the activity and rest. Please notify your physicians office if you experience any of these symptoms and they are not relieved by rest please call 911! - Diet and Activity Activity: resume usual activities as tolerated Diet: low salt diet Hospital course: Mr. Vann is a 71 year old male with a past medical history of COPD, CAD status post CABG and stent, diabetes, and hypertension who presented to the emergency department on 04/10/17 with a chief complaint of chest pain. Patient stated that he had this chest pain for approximately one week. He describes this pain as similar to his acid reflux, but it gradually got more severe. Pain was located in the center stressed and radiated to his arms bilaterally. EKG was performed in the emergency department; demonstrated ST segment depression of 1 mm in the septal leads. These changes were also evident in lead 1. Troponin was drawn, and was elevated at 0.85. Subsequent troponin was elevated at 1.67. Patient was also hypertensive on presentation with systolic blood pressure in the 200s. A nitroglycerin drip was started. Chest x-ray demonstrated the presence of bilateral pulmonary edema. He was also given 20 mg IV Lasix. He was started on aspirin and heparin. Cardiology was consulted and cath was performed. Catheterization performed on 04/11/17 demonstrated severe 3 vessel disease. There was a 16 mm long, 80-90% stenosis in the mid RCA. PTCA/drug-eluting stent was placed in the mid RCA; final stenosis of 0%. Patient was continued on aspirin 81 mg, atorvastatin 40 mg, lisinopril 20 mg, and Plavix 75 mg. Cardiac rehabilitation was consulted, phase I. During his stay in the hospital, patient reported that he felt slightly more short of breath than normal. He has a known history of COPD, for which he sees a relay repairer yearly in the outpatient setting. He does have some shortness of breath at baseline. He is not oxygen dependent at home. During his stay, he did need 2 L of oxygen via nasal cannula. Patient was seen and examined at bedside this morning. He reported feeling much better than he did on admission. His initial chest pain has since subsided. His only complaints this morning were acid reflux and mild shortness of breath. Patient's Lasix was discontinued 04/12/17 due to an increase in creatinine. His creatinine was slightly elevated at 1.52. Patient has a known history of CKD stage III, and his creatinine was only higher than his baseline. His blood pressure today was 135/84. Patient's shortness of breath has improved on date of discharge. Per the recommendation of cardiology, patient is to follow-up in the outpatient setting in one week. - Time Spent with Patient Total time spent providing and/or coordinating discharge services: Greater than 30 minutes (40 minutes) - Constitutional Vitals: Temp Pulse Resp BP Pulse Ox 97.5 F L 70 18 135/84 96 04/12/17 11:24 04/12/17 11:24 04/12/17 11:24 04/12/17 11:24 04/12/17 11:24 General appearance: Present: A&O X 3, answers questions appropriately - ENT ENT exam: Present: mucous membranes moist - Respiratory Respiratory exam: Present: CTAB - Cardiovascular Cardiovascular exam: Present: RRR, +S1, +S2 - Psychiatric Psychiatric exam: Present: normal affect, normal mood <Romario Colon - Last Filed: 04/12/17 15:58> Date of Encounter: 04/12/17 - Discharge Diagnosis (1) NSTEMI (non-ST elevated myocardial infarction) Status: Acute (2) CAD (coronary artery disease) Status: Chronic Qualifiers: Coronary Disease-Associated Artery/Lesion type: bypass graft [place] vs. transplanted heart: [place] heart Associated angina: with unstable angina Qualified Code(s): I25.700 - Atherosclerosis of coronary artery bypass graft(s) , unspecified, with unstable angina pectoris (3) Hypertension Status: Chronic Qualifiers: Hypertension type: essential hypertension Qualified Code(s): I10 - Essential (primary) hypertension (4) CHF (congestive heart failure) Status: Chronic Comments: EF 50% on heart cath Qualifiers: Congestive heart failure type: diastolic Congestive heart failure chronicity: chronic Qualified Code(s): I50.32 - Chronic diastolic (congestive ) heart failure (5) Diabetes Status: Chronic Qualifiers: Diabetes mellitus type: type 2 Diabetes mellitus complication status: with kidney complications Diabetes mellitus complication detail: with chronic kidney disease Diabetes mellitus terminal gauger insulin use: with skilled nursing use Chronic kidney disease stage: stage 3 (moderate) Qualified Code(s): E11.22 - Type 2 diabetes mellitus with diabetic chronic kidney disease; N18.3 - Chronic kidney disease, stage 3 (moderate); N18.3 - Chronic kidney disease, stage 3 ( moderate); Z79.4 - terminal gauger (current) use of insulin; Z79.4 - terminal gauger ( current) use of insulin; Z79.4 - terminal gauger (current) use of insulin; Z79.4 - terminal gauger (current) use of insulin (6) COPD (chronic obstructive pulmonary disease) Status: Chronic Qualifiers: COPD type: emphysema Emphysema type: other Qualified Code(s): J43.8 - Other emphysema (7) MICA (obstructive sleep apnea) Priority: Secondary Status: Chronic Procedures/tests Complete & Pending: Procedures Performed prior 72 hours Category Date Time Status CL Cardiac Catheterization [CL] Routine Assistant Professor Of Radiology 04/11/17 09:21 Completed ECG 12 lead ECG [ECG] Routine Y 04/10/17 23:26 Completed ECG 12 lead ECG [ECG] Routine Y 04/11/17 11:48 Ordered EV echocardiogram Routine Y 04/12/17 02:22 Completed Date of admission: 04/11/17 01:55 Primary care physician: Pepe Harrington MD Consults: 04/11/17 12:52 Consult to Cardiac Rehabilitation-Phase1 [CONS] Routine Comment: Reason for Consult: NSTEMI Call Completed: No Hospital course: Mr. Vann is a 71 year old male - Time Spent with Patient Total time spent providing and/or coordinating discharge services: 39min - Constitutional Vitals: Temp Pulse Resp BP Pulse Ox 97.5 F L 74 18 135/84 96 04/12/17 11:24 04/12/17 12:45 04/12/17 12:45 04/12/17 11:24 04/12/17 11:24 - Attending Attestation I examined this patient and my medical decision-making was reviewed with the Resident Physician on 04/12/17. I agree with the documented findings, disposition and treatment plan as described except to the extent set forth below. Mr Vann has been admitted for acute NSTEMI. He had LHC and stent placement. He is now afebrile and vitals stable. His creatinine is slightly above baseline but will be followed later in week. He is ready for discharge home. Exam Alert. Comfortable Mucus membranes dry Heart reg No wheeze Abd soft Plan D/C home today D/C Dr. Shell - will have lab on Wednesday to assess renal function Further diagnoses and plan as above.
== END 2017-04-12 14:05 | disposition home or self-care (01) | DRG 247 ==
LOC: 2NENU 23:20 → EMEROO 23:20 → SUATTDRO 04-11 01:55 → 2NENU 04-11 02:46 → 2NNU 04-11 11:30
PROVIDERS: ADMIT Internal Medicine; ATTEND Internal Medicine

== ENCOUNTER 2021-06-12 11:07 | Inpatient (IN) ==
[2021-06-12 12:06] LABS: Basophils % 0.1 %; Eosinophils % 0.1 %; Hematocrit 43.5 % (37.5-50.1); Hemoglobin 13.4 g/dL (12.9-16.9); Immature Granulocytes % 0.7 % (0-4); Lymphocytes # 1.5 K/mcL (0.6-4.6); Lymphocytes % 10.5 %; Mean Corpuscular HGB Conc 30.8 g/dL (31.6-35.5); Mean Corpuscular Hemoglobin 29.3 pg (28.0-33.3); Mean Platelet Volume 11.1 fL (9.4-12.4); Monocytes # 0.9 K/mcL (0.0-1.3); Monocytes % 6.1 %; Neutrophils # 11.5 K/mcL (1.6-8.9); Platelet Count 215 K/mcL (140-400); Red Blood Count 4.58 M/mcL (4.19-5.50); Red Cell Distribution Width 14.8 % (11.5-14.5); Segmented Neutrophils % 82.5 %; White Blood Count 13.9 K/mcL (4.3-11.1)
[2021-06-12 12:26] LABS: BUN/Creatinine Ratio 22 (6-26); Blood Urea Nitrogen 71 mg/dL (8-23); Calcium 9.1 mg/dL (8.6-10.3); Carbon Dioxide 17 mEq/L (23-29); Chloride 104 mEq/L (98-107); Glucose 150 mg/dL (70-105); Osmolality,Calculated 298 (280-300); Potassium 4.4 mEq/L (3.5-5.1); Sodium 132 mEq/L (136-145); eGFR For African Americans 23 (> 60); eGFR For Non-African Americans 19 (> 60)
[2021-06-12 12:27] LABS: Troponin I < 0.03 ng/mL (< 0.04)
[2021-06-12] MEDS ORDERED: *HR* Heparin 5,000 UNIT/ML VIAL IVP PRN ×2 (15:14)
[2021-06-12] MEDS ORDERED: *HR* Heparin 5,000 UNIT/ML VIAL IVP ONE (15:14)
[2021-06-12] MEDS ORDERED: Heparin 25,000UNIT/250ML 1/2NS 25,000 UNIT/250 ML IV.SOLN IVC SCH (15:15)
[2021-06-12] MEDS ORDERED: Pantoprazole 40 MG VIAL IVP ONE (15:16)
[2021-06-12] MEDS ORDERED: 0.9 % Sodium Chloride 500 ML IVC ONE (15:17)
[2021-06-12] MEDS ORDERED: Acetaminophen 325 MG TABLET PO PRN (15:47)
[2021-06-12] MEDS ORDERED: Ondansetron 4 MG/2 ML VIAL IVP PRN (15:47)
[2021-06-12] MEDS: cefTRIAXone 2,000 MG in 0.9 % Sodium Chloride Mini Bag 100 ML IVPB SCH (17:01)
[2021-06-12] MEDS: Azithromycin 500 MG in 0.9 % Sodium Chloride 250 ML IVPB SCH (17:52)
[2021-06-12] MEDS: Ipratropium 1 PUFF INHALER IH SCH ×2 (18:27→20:23)
[2021-06-12] MEDS: Sodium Bicarbonate 75 MEQ in 0.45 % Sodium Chloride 1,000 ML IVC SCH (19:56)
[2021-06-12] MEDS: Ascorbic Acid 500 MG TABLET PO SCH (19:57)
[2021-06-12] MEDS ORDERED: *HR* Enoxaparin 40 MG/0.4 ML SYRINGE SQ SCH (21:00)
[2021-06-12] MEDS ORDERED: *HR* Enoxaparin 120 MG/0.8 ML SYRINGE SQ SCH (21:00)
[2021-06-12] MEDS: Insulin LISPRO 300 UNITS/3 ML VIAL SUBQ SCH (22:45)
[2021-06-12] MEDS: *HR* HYDROcodone/Acet 5/325 mg TABLET PO PRN (22:49)
[2021-06-13 02:31] LABS: Albumin 2.7 g/dL (3.5-5.7); Albumin/Globulin Ratio 1.1 (1.1-2.2); Bilirubin,Total 0.3 mg/dL (0.3-1.0); Calcium 8.1 mg/dL (8.6-10.3); Globulin 2.5 g/dL (2.4-3.5); Potassium 4.9 mEq/L (3.5-5.1); Total Protein 5.2 g/dL (6.4-8.9)
[2021-06-13 02:36] LABS: Hematocrit 35.9 % (37.5-50.1); Mean Corpuscular HGB Conc 31.2 g/dL (31.6-35.5); Mean Corpuscular Hemoglobin 29.3 pg (28.0-33.3); Mean Platelet Volume 11.5 fL (9.4-12.4); Platelet Count 163 K/mcL (140-400); Red Blood Count 3.82 M/mcL (4.19-5.50); Red Cell Distribution Width 14.6 % (11.5-14.5); White Blood Count 7.5 K/mcL (4.3-11.1)
[2021-06-13 02:42] LABS: Hemoglobin 11.2 g/dL (12.9-16.9)
[2021-06-13] MEDS: Ipratropium 1 PUFF INHALER IH SCH ×4 (03:45→23:26)
[2021-06-13] MEDS: *HR* HYDROcodone/Acet 5/325 mg TABLET PO PRN (05:59)
[2021-06-13] MEDS: Sodium Bicarbonate 75 MEQ in 0.45 % Sodium Chloride 1,000 ML IVC SCH ×2 (06:10→16:56)
[2021-06-13] MEDS: Ascorbic Acid 500 MG TABLET PO SCH ×2 (08:29→20:46)
[2021-06-13] MEDS: Insulin LISPRO 300 UNITS/3 ML VIAL SUBQ SCH ×4 (08:31→20:48)
[2021-06-13] MEDS: Nitroglycerin 0.4 MG TAB.SUBL SL PRN ×3 (13:24→14:35)
[2021-06-13] MEDS ORDERED: Nitroglycerin 0.4 MG TAB.SUBL SL PRN (13:50)
[2021-06-13] MEDS: Isosorbide MONOnitrate (24 HR) 30 MG TAB.ER.24H PO SCH (14:12)
[2021-06-13] MEDS: cefTRIAXone 2,000 MG in 0.9 % Sodium Chloride Mini Bag 100 ML IVPB SCH (16:54)
[2021-06-13] MEDS: Azithromycin 500 MG in 0.9 % Sodium Chloride 250 ML IVPB SCH (16:55)
[2021-06-13] MEDS ORDERED: Perflutren Lipid Microsphere 1.3 ML in 0.9 % Sodium Chloride 8.7 ML IVP PRN (17:57)
[2021-06-13] MEDS ORDERED: Ondansetron 4 MG/2 ML VIAL IVP PRN (18:02)
[2021-06-13] MEDS ORDERED: *HR* Heparin 5,000 UNIT/ML VIAL IVP ONE (18:40)
[2021-06-13] MEDS ORDERED: *HR* Heparin 5,000 UNIT/ML VIAL IVP PRN ×2 (18:40)
[2021-06-13] MEDS: Heparin 25,000UNIT/250ML 1/2NS 25,000 UNIT/250 ML IV.SOLN IVC SCH (19:04)
[2021-06-13] MEDS: Ranolazine 500 MG TAB.ER.12H PO SCH (20:46)
[2021-06-13] MEDS: Fluticasone Propionate Nasal 50 MCG/SPRAY BOTTLE NS SCH (22:54)
[2021-06-13] MEDS: Budesonide/Formoterol 160/4.5 1 PUFF INH IH SCH (23:25)
[2021-06-14] MEDS: Ipratropium 1 PUFF INHALER IH SCH ×4 (03:55→23:09)
[2021-06-14 04:44] LABS: Hemoglobin 12.5 g/dL (12.9-16.9); Mean Corpuscular HGB Conc 32.9 g/dL (31.6-35.5); Mean Corpuscular Hemoglobin 29.7 pg (28.0-33.3); Mean Corpuscular Volume 90.3 fL (83.0-100.0); Platelet Count 207 K/mcL (140-400); Red Blood Count 4.21 M/mcL (4.19-5.50); Red Cell Distribution Width 14.5 % (11.5-14.5)
[2021-06-14 04:45] LABS: White Blood Count 12.2 K/mcL (4.3-11.1)
[2021-06-14 04:57] LABS: INR 1.3; Prothrombin Time 14.9 Seconds (9.4-12.1)
[2021-06-14 04:59] LABS: Activated Partial Thrombo Time 61.6 Seconds (26.0-36.0)
[2021-06-14 05:03] LABS: Albumin 2.8 g/dL (3.5-5.7); Bilirubin,Total 0.4 mg/dL (0.3-1.0); Calcium 8.3 mg/dL (8.6-10.3); Globulin 2.9 g/dL (2.4-3.5); Potassium 4.1 mEq/L (3.5-5.1); Total Protein 5.7 g/dL (6.4-8.9)
[2021-06-14] MEDS: Sodium Bicarbonate 75 MEQ in 0.45 % Sodium Chloride 1,000 ML IVC SCH ×2 (06:07→19:03)
[2021-06-14 06:13] LABS: Troponin I 10.51 ng/mL (< 0.04)
[2021-06-14] MEDS: Insulin LISPRO 300 UNITS/3 ML VIAL SUBQ SCH ×3 (08:46→17:16)
[2021-06-14] MEDS ORDERED: NON-FORMULARY MEDICATION 1 EACH EACH (Omega-3/Dha/Epa/Fish Oil [Fish Oil 1,000 Mg Softgel] PO SCH (09:00)
[2021-06-14] MEDS ORDERED: ASCORBIC ACID 500 MG PO SCH (09:00)
[2021-06-14] MEDS: Ranolazine 500 MG TAB.ER.12H PO SCH ×2 (09:11→20:11)
[2021-06-14] MEDS: Dexamethasone Sodium Phos/PF 10 MG/ML VIAL IVP SCH (09:11)
[2021-06-14] MEDS: Cyanocobalamin (B-12) 1,000 MCG TABLET PO SCH (09:12)
[2021-06-14] MEDS: Cholecalciferol (D-3) 1,000 UNIT (25MCG) TABLET PO SCH (09:12)
[2021-06-14] MEDS: Ascorbic Acid 500 MG TABLET PO SCH ×2 (09:12→20:12)
[2021-06-14] MEDS: Isosorbide MONOnitrate (24 HR) 30 MG TAB.ER.24H PO SCH (09:12)
[2021-06-14] MEDS: Aspirin Enteric Coated 81 MG Tablet PO SCH (09:12)
[2021-06-14] MEDS: Loratadine 10 MG TABLET PO SCH (09:12)
[2021-06-14] MEDS: Fluticasone Propionate Nasal 50 MCG/SPRAY BOTTLE NS SCH ×2 (09:13→20:12)
[2021-06-14] MEDS: Budesonide/Formoterol 160/4.5 1 PUFF INH IH SCH ×2 (11:50→23:09)
[2021-06-14] MEDS: cefTRIAXone 2,000 MG in 0.9 % Sodium Chloride Mini Bag 100 ML IVPB SCH (16:57)
[2021-06-14] MEDS: Azithromycin 500 MG in 0.9 % Sodium Chloride 250 ML IVPB SCH (17:03)
[2021-06-14] MEDS ORDERED: *HR* LORazepam 2 MG/ML VIAL IVP ONE (19:46)
[2021-06-15 01:19] LABS: Hematocrit 36.8 % (37.5-50.1); Hemoglobin 12.1 g/dL (12.9-16.9); Mean Corpuscular HGB Conc 32.9 g/dL (31.6-35.5); Mean Corpuscular Hemoglobin 29.7 pg (28.0-33.3); Mean Corpuscular Volume 90.2 fL (83.0-100.0); Mean Platelet Volume 10.8 fL (9.4-12.4); Platelet Count 211 K/mcL (140-400); Red Blood Count 4.08 M/mcL (4.19-5.50); Red Cell Distribution Width 14.6 % (11.5-14.5); White Blood Count 12.6 K/mcL (4.3-11.1)
[2021-06-15 01:40] LABS: Albumin 2.9 g/dL (3.5-5.7); Bilirubin,Total 0.4 mg/dL (0.3-1.0); Calcium 8.3 mg/dL (8.6-10.3); Potassium 4.7 mEq/L (3.5-5.1); Total Protein 5.9 g/dL (6.4-8.9)
[2021-06-15] MEDS: Heparin 25,000UNIT/250ML 1/2NS 25,000 UNIT/250 ML IV.SOLN IVC SCH (01:56)
[2021-06-15] MEDS: Ipratropium 1 PUFF INHALER IH SCH ×4 (03:16→20:07)
[2021-06-15] MEDS: Sodium Bicarbonate 75 MEQ in 0.45 % Sodium Chloride 1,000 ML IVC SCH ×2 (06:04→13:15)
[2021-06-15] MEDS: Loratadine 10 MG TABLET PO SCH (08:55)
[2021-06-15] MEDS: Ascorbic Acid 500 MG TABLET PO SCH ×2 (08:56→20:33)
[2021-06-15] MEDS: Aspirin Enteric Coated 81 MG Tablet PO SCH (08:56)
[2021-06-15] MEDS: Cyanocobalamin (B-12) 1,000 MCG TABLET PO SCH (08:56)
[2021-06-15] MEDS: Dexamethasone Sodium Phos/PF 10 MG/ML VIAL IVP SCH (08:56)
[2021-06-15] MEDS: Cholecalciferol (D-3) 1,000 UNIT (25MCG) TABLET PO SCH (08:56)
[2021-06-15] MEDS: Isosorbide MONOnitrate (24 HR) 30 MG TAB.ER.24H PO SCH (08:56)
[2021-06-15] MEDS: Insulin LISPRO 300 UNITS/3 ML VIAL SUBQ SCH ×3 (08:57→16:53)
[2021-06-15] MEDS: Ranolazine 500 MG TAB.ER.12H PO SCH ×2 (08:58→20:33)
[2021-06-15] MEDS: Fluticasone Propionate Nasal 50 MCG/SPRAY BOTTLE NS SCH ×2 (08:58→20:33)
[2021-06-15] MEDS: Budesonide/Formoterol 160/4.5 1 PUFF INH IH SCH ×2 (11:20→20:07)
[2021-06-15] MEDS: Dexmedetomidine HCl 400 MCG/100 ML MLS IVC SCH (13:19)
[2021-06-15 16:11] LABS: ABG Base Excess -1 mEq/L (-2 to 3); ABG HCO3 24 mEq/L (21-27); ABG Oxygen Saturation 92 % (95-98); ABG PCO2 39 mmHg (35-45); ABG PH 7.39 pH Units (7.32-7.45); ABG PO2 64 mmHg (85-104); ABG TCO2 25 mEq/L (20-26)
[2021-06-15] MEDS: cefTRIAXone 2,000 MG in 0.9 % Sodium Chloride Mini Bag 100 ML IVPB SCH (16:31)
[2021-06-15] MEDS: Azithromycin 500 MG in 0.9 % Sodium Chloride 250 ML IVPB SCH (16:54)
[2021-06-16] MEDS: Morphine Sulfate 2 MG/ML SYRINGE IVP PRN ×2 (00:17→21:35)
[2021-06-16] MEDS: Dexmedetomidine HCl 400 MCG/100 ML MLS IVC SCH ×3 (00:24→23:02)
[2021-06-16] MEDS: Ipratropium 1 PUFF INHALER IH SCH ×4 (03:17→23:28)
[2021-06-16] MEDS: Sodium Bicarbonate 75 MEQ in 0.45 % Sodium Chloride 1,000 ML IVC SCH ×2 (03:30→13:23)
[2021-06-16 07:01] LABS: Hematocrit 31.5 % (37.5-50.1); Mean Corpuscular HGB Conc 32.4 g/dL (31.6-35.5); Mean Corpuscular Hemoglobin 29.1 pg (28.0-33.3); Mean Corpuscular Volume 89.7 fL (83.0-100.0); Platelet Count 189 K/mcL (140-400); Red Blood Count 3.51 M/mcL (4.19-5.50); Red Cell Distribution Width 14.7 % (11.5-14.5); White Blood Count 10.5 K/mcL (4.3-11.1)
[2021-06-16 07:02] LABS: Hemoglobin 10.2 g/dL (12.9-16.9)
[2021-06-16 07:21] LABS: Albumin 2.5 g/dL (3.5-5.7); Bilirubin,Total 0.5 mg/dL (0.3-1.0); Calcium 7.9 mg/dL (8.6-10.3); Globulin 2.4 g/dL (2.4-3.5); Potassium 4.6 mEq/L (3.5-5.1); Total Protein 4.9 g/dL (6.4-8.9)
[2021-06-16] MEDS ORDERED: Tocilizumab 80 MG/4 ML MLS IV ONE (08:45)
[2021-06-16] MEDS: Aspirin Enteric Coated 81 MG Tablet PO SCH (08:50)
[2021-06-16] MEDS: Cyanocobalamin (B-12) 1,000 MCG TABLET PO SCH (08:50)
[2021-06-16] MEDS: Heparin 25,000UNIT/250ML 1/2NS 25,000 UNIT/250 ML IV.SOLN IVC SCH ×2 (09:27→18:25)
[2021-06-16] MEDS: Cholecalciferol (D-3) 1,000 UNIT (25MCG) TABLET PO SCH (09:30)
[2021-06-16] MEDS: Loratadine 10 MG TABLET PO SCH (09:30)
[2021-06-16] MEDS: Ranolazine 500 MG TAB.ER.12H PO SCH ×2 (09:30→21:18)
[2021-06-16] MEDS: Isosorbide MONOnitrate (24 HR) 30 MG TAB.ER.24H PO SCH (09:31)
[2021-06-16] MEDS: Dexamethasone Sodium Phos/PF 10 MG/ML VIAL IVP SCH (09:31)
[2021-06-16] MEDS: Insulin LISPRO 300 UNITS/3 ML VIAL SUBQ SCH ×3 (09:33→15:29)
[2021-06-16] MEDS: Fluticasone Propionate Nasal 50 MCG/SPRAY BOTTLE NS SCH ×2 (09:33→21:19)
[2021-06-16] MEDS: Ascorbic Acid 500 MG TABLET PO SCH ×3 (09:34→21:34)
[2021-06-16] MEDS: Budesonide/Formoterol 160/4.5 1 PUFF INH IH SCH ×2 (11:04→23:28)
[2021-06-16 12:06] LABS: Troponin I 1.84 ng/mL (< 0.04)
[2021-06-16] MEDS: cefTRIAXone 2,000 MG in 0.9 % Sodium Chloride Mini Bag 100 ML IVPB SCH (15:41)
[2021-06-16] MEDS: Azithromycin 500 MG in 0.9 % Sodium Chloride 250 ML IVPB SCH (15:42)
[2021-06-16] MEDS: *HR* Metoprolol 5 MG/5 ML VIAL IVP PRN (23:01)
[2021-06-17] MEDS: Sodium Bicarbonate 75 MEQ in 0.45 % Sodium Chloride 1,000 ML IVC SCH ×3 (02:45→23:28)
[2021-06-17] MEDS: Ipratropium 1 PUFF INHALER IH SCH ×5 (03:46→23:23)
[2021-06-17] MEDS: Dexmedetomidine HCl 400 MCG/100 ML MLS IVC SCH ×5 (03:46→23:23)
[2021-06-17 04:38] LABS: Hematocrit 34.8 % (37.5-50.1); Hemoglobin 11.1 g/dL (12.9-16.9); Mean Corpuscular HGB Conc 31.9 g/dL (31.6-35.5); Mean Corpuscular Hemoglobin 28.8 pg (28.0-33.3); Mean Corpuscular Volume 90.4 fL (83.0-100.0); Mean Platelet Volume 11.1 fL (9.4-12.4); Platelet Count 241 K/mcL (140-400); Red Blood Count 3.85 M/mcL (4.19-5.50); Red Cell Distribution Width 14.8 % (11.5-14.5); White Blood Count 12.4 K/mcL (4.3-11.1)
[2021-06-17 04:55] LABS: Albumin 2.7 g/dL (3.5-5.7); Bilirubin,Total 0.4 mg/dL (0.3-1.0); Calcium 8.1 mg/dL (8.6-10.3); Globulin 2.8 g/dL (2.4-3.5); Potassium 4.9 mEq/L (3.5-5.1); Total Protein 5.5 g/dL (6.4-8.9)
[2021-06-17 04:58] LABS: Heparin anti-factor XA UFH 0.57 IU/mL (0.30-0.70)
[2021-06-17] MEDS: Loratadine 10 MG TABLET PO SCH (07:50)
[2021-06-17] MEDS: Aspirin Enteric Coated 81 MG Tablet PO SCH (07:50)
[2021-06-17] MEDS: Isosorbide MONOnitrate (24 HR) 30 MG TAB.ER.24H PO SCH (07:51)
[2021-06-17] MEDS: Fluticasone Propionate Nasal 50 MCG/SPRAY BOTTLE NS SCH ×2 (07:51→23:28)
[2021-06-17] MEDS: Ranolazine 500 MG TAB.ER.12H PO SCH ×2 (07:51→23:28)
[2021-06-17] MEDS: Cholecalciferol (D-3) 1,000 UNIT (25MCG) TABLET PO SCH (07:52)
[2021-06-17] MEDS: Ascorbic Acid 500 MG TABLET PO SCH ×2 (07:52→23:28)
[2021-06-17] MEDS: Cyanocobalamin (B-12) 1,000 MCG TABLET PO SCH (07:52)
[2021-06-17] MEDS: Dexamethasone Sodium Phos/PF 10 MG/ML VIAL IVP SCH (07:58)
[2021-06-17] MEDS: Insulin LISPRO 300 UNITS/3 ML VIAL SUBQ SCH ×3 (07:59→16:51)
[2021-06-17] MEDS: *HR* Metoprolol 5 MG/5 ML VIAL IVP PRN (07:59)
[2021-06-17] MEDS: Heparin 25,000UNIT/250ML 1/2NS 25,000 UNIT/250 ML IV.SOLN IVC SCH (10:41)
[2021-06-17] MEDS: Budesonide/Formoterol 160/4.5 1 PUFF INH IH SCH ×2 (11:00→20:42)
[2021-06-17] MEDS: cefTRIAXone 2,000 MG in 0.9 % Sodium Chloride Mini Bag 100 ML IVPB SCH (15:57)
[2021-06-17] MEDS: Azithromycin 500 MG in 0.9 % Sodium Chloride 250 ML IVPB SCH (15:58)
[2021-06-17] MEDS: Morphine Sulfate 2 MG/ML SYRINGE IVP PRN ×2 (16:53→21:36)
[2021-06-17] MEDS ORDERED: Nitroglycerin 0.4 MG TAB.SUBL SL PRN (21:48)
[2021-06-17] MEDS ORDERED: *HR* Heparin 5,000 UNIT/ML VIAL IVP PRN ×2 (21:48)
[2021-06-17] MEDS ORDERED: *HR* HYDROcodone/Acet 5/325 mg TABLET PO PRN (21:48)
[2021-06-17] MEDS ORDERED: Sodium Bicarbonate 75 MEQ in 0.45 % Sodium Chloride 1,000 ML IVC SCH (21:48)
[2021-06-17] MEDS ORDERED: Heparin 25,000UNIT/250ML 1/2NS 25,000 UNIT/250 ML IV.SOLN IVC SCH (21:48)
[2021-06-17] MEDS ORDERED: Ondansetron 4 MG/2 ML VIAL IVP PRN ×2 (21:48)
[2021-06-17] MEDS ORDERED: Acetaminophen 325 MG TABLET PO PRN (21:48)
[2021-06-17] MEDS ORDERED: Morphine Sulfate 2 MG/ML SYRINGE IVP PRN (21:48)
[2021-06-17] MEDS ORDERED: *HR* Metoprolol 5 MG/5 ML VIAL IVP PRN (21:48)
[2021-06-17] MEDS ORDERED: Budesonide/Formoterol 160/4.5 1 PUFF INH IH SCH (22:00)
[2021-06-17] MEDS ORDERED: *HR* LORazepam 2 MG/ML VIAL IVP ONE ×2 (22:04→22:19)
[2021-06-17] MEDS ORDERED: *HR* LORazepam 2 MG/ML VIAL ONE (22:06)
[2021-06-17 23:44] VITALS: BP 90/39; PULSE 62; TEMP 97.8; O2SAT 90
[2021-06-18] MEDS ORDERED: Insulin LISPRO 300 UNITS/3 ML VIAL SUBQ SCH ×2
[2021-06-18] MEDS ORDERED: Morphine Sulfate 2 MG/ML SYRINGE IVP PRN (02:30)
[2021-06-18] MEDS ORDERED: Scopolamine Patch 1.5 MG PATCH.TD72 TD SCH (02:30)
[2021-06-18] MEDS: Dexmedetomidine HCl 400 MCG/100 ML MLS IVC SCH (02:35)
[2021-06-18] MEDS ORDERED: *HR* LORazepam 2 MG/ML VIAL IVP PRN (02:41)
[2021-06-18] MEDS: Ipratropium 1 PUFF INHALER IH SCH (03:38)
[2021-06-18 04:23] LABS: ABG Base Excess 3 mEq/L (-2 to 3); ABG HCO3 27 mEq/L (21-27); ABG Oxygen Saturation 96 % (95-98); ABG PCO2 36 mmHg (35-45); ABG PH 7.48 pH Units (7.32-7.45); ABG PO2 74 mmHg (85-104); ABG TCO2 28 mEq/L (20-26); Blood Gas VT 500 cc
[2021-06-18] MEDS ORDERED: Cyanocobalamin (B-12) 1,000 MCG TABLET PO SCH (09:00)
[2021-06-18] MEDS ORDERED: Loratadine 10 MG TABLET PO SCH (09:00)
[2021-06-18] MEDS ORDERED: Cholecalciferol (D-3) 1,000 UNIT (25MCG) TABLET PO SCH (09:00)
[2021-06-18] MEDS ORDERED: Ranolazine 500 MG TAB.ER.12H PO SCH (09:00)
[2021-06-18] MEDS ORDERED: Ascorbic Acid 500 MG TABLET PO SCH (09:00)
[2021-06-18] MEDS ORDERED: Aspirin Enteric Coated 81 MG Tablet PO SCH (09:00)
[2021-06-18] MEDS ORDERED: Fluticasone Propionate Nasal 50 MCG/SPRAY BOTTLE NS SCH (09:00)
[2021-06-18] MEDS ORDERED: Dexamethasone Sodium Phos/PF 10 MG/ML VIAL IVP SCH (09:00)
[2021-06-18] MEDS ORDERED: Isosorbide MONOnitrate (24 HR) 30 MG TAB.ER.24H PO SCH (09:00)
[2021-06-18] MEDS ORDERED: Azithromycin 500 MG in 0.9 % Sodium Chloride 250 ML IVPB SCH (16:00)
[2021-06-18] MEDS ORDERED: cefTRIAXone 2,000 MG in 0.9 % Sodium Chloride Mini Bag 100 ML IVPB SCH (16:00)
== END 2021-06-18 03:20 | disposition expired | DRG 871 ==
LOC: 3NENU 11:07 → EMEROOARM 11:07 → 3NENU 18:07 → 2NNU 06-17 21:28
PROVIDERS: ADMIT Internal Medicine; ATTEND Internal Medicine